=== PATIENT | male | born 1970 | race Caucasian/White ===

== ENCOUNTER 2020-07-14 19:46 | Inpatient (IN) | payer BC, OTHER ==
[2020-07-14 20:04] VITALS: BMI 27.3
[2020-07-14] MEDS ORDERED: DEXAMETHASONE SOD PHOSPHATE 4 MG/1 ML VIAL IVPUSH ONE (20:46)
[2020-07-14] MEDS ORDERED: DEXAMETHASONE SOD PHOSPHATE 10 MG/1 ML VIAL ONE (20:49)
[2020-07-14] MEDS ORDERED: ACETAMINOPHEN 1000 MG/100 ML VIAL (NON FORMULARY) IVPB ONE (20:52)
[2020-07-14 20:54] LABS: BASO % 0.1 % (0-2.0); EOS % 1.4 % (0-4.5); HEMATOCRIT 44.3 % (35.4-49); HEMOGLOBIN 14.6 GM/dL (11.7-16.9); LYMPH % 13.8 % (8-40); MCH 28.8 pg (25.7-33.7); MCHC 32.9 g/dl (32.0-35.9); MEAN CELL VOLUME 87.6 fl (80-96); MONO % 10.1 % (3.8-10.2); NEUT % 74.6 % (42.8-82.8); PLATELET COUNT 336 K/MM3 (134-434); RBC 5.06 M/mm3 (4.00-5.60); RDW 13.2 % (11.9-15.9); VENOUS BASE EXCESS 0.9 mmol/L (-2-2); VENOUS O2 SATURATION 81.4 % (70-80); VENOUS PCO2 41.2 mmHg (38-52); VENOUS PH 7.412 (7.310-7.410); WHITE BLOOD COUNT 10.6 K/mm3 (4.0-10.0)
[2020-07-14] MEDS ORDERED: ACETAMINOPHEN INJECTION 100 ML IVPB ONE (20:59)
[2020-07-14 21:02] LABS: INR 1.04 (0.83-1.09); PROTHROMBIN TIME (PATIENT) 12.8 SEC (9.7-13.0)
[2020-07-14 21:04] LABS: ACTIVATED PTT 28.3 SECONDS (25.2-36.5)
[2020-07-14 21:20] LABS: CHLORIDE 100 mmol/L (98-107); SODIUM 135 mmol/L (136-145)
[2020-07-14 21:22] LABS: ALBUMIN 2.8 g/dl (3.4-5.0); ANION GAP 7 MMOL/L (8-16); CALCIUM 8.3 mg/dL (8.5-10.1); CO2 28 mmol/L (21-32)
[2020-07-14 21:23] LABS: GLUCOSE,RANDOM 151 mg/dL (74-106)
[2020-07-14 21:25] LABS: BILIRUBIN,DIRECT 0.5 mg/dL (0.0-0.2); CREATININE 0.8 mg/dL (0.55-1.3); SGOT/AST 51 U/L (15-37); SGPT/ALT 36 U/L (13-61)
[2020-07-14 21:27] LABS: TOT PROT 7.9 g/dl (6.4-8.2)
[2020-07-14 21:28] LABS: ALK PHOS 91 U/L (45-117)
[2020-07-14 21:29] LABS: LDH 511 U/L (87-246)
[2020-07-14 21:39] LABS: EPI CELLS >36 /uL (0-25.1); HYALINE CASTS 39 /uL (0-3.1); PH,URINE 5.5 (5.0-8.0); URINE APPEARANCE CLOUDY; URINE BILIRUBIN 2+ (NEGATIVE); URINE COLOR DK YELLOW; URINE GLUCOSE (UA) TRACE (NEGATIVE); URINE KETONE TRACE (NEGATIVE); URINE LEUK ESTERASE 1+ (NEGATIVE); URINE NITRITE POSITIVE (NEGATIVE); URINE PROTEIN 3+ (NEGATIVE); URINE WBC 44 /uL (0-25.8)
[2020-07-14] MEDS ORDERED: CEFTRIAXONE 1,000 MG in DEXTROSE 5%-WATER - 50 ML IVPB ONE (22:08)
[2020-07-14] MEDS ORDERED: CEFTRIAXONE 1 GM/50 ML BAG ONE (22:12)
[2020-07-14] MEDS ORDERED: ENOXAPARIN NA (PORCINE) 40 MG/0.4 ML DISP.SYRIN SQ ONE (22:45)
[2020-07-14] MEDS ORDERED: ASCORBIC ACID 500 MG TABLET (FP) ONE (22:45)
[2020-07-14] MEDS: ASCORBIC ACID 500 MG TABLET (FP) PO SCH (22:50)
[2020-07-14] MEDS: ENOXAPARIN NA (PORCINE) 40 MG/0.4 ML DISP.SYRIN SQ SCH (22:50)
[2020-07-14 23:37] LABS: BASO % 0.9 % (0-2.0); EOS % 0.2 % (0-4.5); HEMATOCRIT 42.4 % (35.4-49); HEMOGLOBIN 13.8 GM/dL (11.7-16.9); LYMPH % 4.5 % (8-40); MCH 28.3 pg (25.7-33.7); MCHC 32.6 g/dl (32.0-35.9); MEAN PLT VOLUME 7.7 fl (7.5-11.1); MONO % 5.8 % (3.8-10.2); NEUT % 88.6 % (42.8-82.8); PLATELET COUNT 312 K/MM3 (134-434); RBC 4.88 M/mm3 (4.00-5.60); WHITE BLOOD COUNT 11.3 K/mm3 (4.0-10.0)
[2020-07-14 23:45] LABS: URINE BACTERIA 126.1 /uL (0-1359); URINE RBC 29.6 /uL (0-23.9)
[2020-07-15 06:08] LABS: ALBUMIN 2.4 g/dl (3.4-5.0); BLOOD UREA NITROGEN 17.5 mg/dL (7-18); MAGNESIUM 2.6 mg/dL (1.8-2.4)
[2020-07-15 06:09] LABS: CALCIUM 8.4 mg/dL (8.5-10.1)
[2020-07-15 06:11] LABS: CREATININE 0.6 mg/dL (0.55-1.3)
[2020-07-15 06:12] LABS: BILIRUBIN,TOTAL 0.8 mg/dL (0.2-1); TOT PROT 7.3 g/dl (6.4-8.2)
[2020-07-15] MEDS ORDERED: ZINC SULFATE 220 MG CAPSULE (FP) ONE (09:22)
[2020-07-15] MEDS ORDERED: DEXAMETHASONE SOD PHOSPHATE 4 MG/1 ML VIAL ONE (09:22)
[2020-07-15] MEDS ORDERED: ASCORBIC ACID 500 MG TABLET (FP) ONE (09:22)
[2020-07-15] MEDS ORDERED: CEFTRIAXONE 1 GM/50 ML BAG ONE (09:23)
[2020-07-15] MEDS ORDERED: ENOXAPARIN NA (PORCINE) 40 MG/0.4 ML DISP.SYRIN SQ ONE (09:23)
[2020-07-15 09:24] LABS: BASO % 0.7 % (0-2.0); HEMOGLOBIN 13.7 GM/dL (11.7-16.9); LYMPH % 6.4 % (8-40); MCH 29.2 pg (25.7-33.7); MCHC 33.4 g/dl (32.0-35.9); MEAN CELL VOLUME 87.4 fl (80-96); MEAN PLT VOLUME 8.1 fl (7.5-11.1); MONO % 3.9 % (3.8-10.2); PLATELET COUNT 330 K/MM3 (134-434); RBC 4.69 M/mm3 (4.00-5.60); RDW 13.2 % (11.9-15.9); WHITE BLOOD COUNT 6.8 K/mm3 (4.0-10.0)
[2020-07-15] MEDS: CEFTRIAXONE 1 GM in DEXTROSE 5%-WATER - 50 ML IVPB SCH (09:36)
[2020-07-15] MEDS: ASCORBIC ACID 500 MG TABLET (FP) PO SCH ×2 (09:36→22:18)
[2020-07-15] MEDS: DEXAMETHASONE SOD PHOSPHATE 10 MG/1 ML VIAL IVPUSH SCH (09:36)
[2020-07-15] MEDS: ZINC SULFATE 220 MG CAPSULE (FP) PO SCH (09:36)
[2020-07-15] MEDS: ENOXAPARIN NA (PORCINE) 40 MG/0.4 ML DISP.SYRIN SQ SCH (09:36)
[2020-07-15] MEDS ORDERED: REMDESIVIR 200 MG in SODIUM CHLORIDE 210 ML IVPB ONE (15:30)
[2020-07-16 08:08] LABS: BASO % 0.1 % (0-2.0); HEMATOCRIT 37.4 % (35.4-49); HEMOGLOBIN 12.8 GM/dL (11.7-16.9); LYMPH % 4.8 % (8-40); MCH 29.4 pg (25.7-33.7); MCHC 34.2 g/dl (32.0-35.9); MEAN CELL VOLUME 85.7 fl (80-96); MEAN PLT VOLUME 7.7 fl (7.5-11.1); MONO % 7.9 % (3.8-10.2); NEUT % 87.2 % (42.8-82.8); PLATELET COUNT 461 K/MM3 (134-434); RBC 4.36 M/mm3 (4.00-5.60); RDW 12.9 % (11.9-15.9)
[2020-07-16 08:41] LABS: ALBUMIN 2.2 g/dl (3.4-5.0); BLOOD UREA NITROGEN 15.4 mg/dL (7-18); CALCIUM 7.9 mg/dL (8.5-10.1)
[2020-07-16 08:42] LABS: CREATININE 0.5 mg/dL (0.55-1.3); MAGNESIUM 2.6 mg/dL (1.8-2.4)
[2020-07-16 08:44] LABS: BILIRUBIN,TOTAL 0.5 mg/dL (0.2-1); TOT PROT 6.5 g/dl (6.4-8.2)
[2020-07-16] MEDS ORDERED: cefTRIAXone SODIUM 1 GM VIAL ONE (09:39)
[2020-07-16] MEDS ORDERED: DEXTROSE 5%-WATER - 50 ML IVPB ONE (09:39)
[2020-07-16] MEDS: DEXAMETHASONE SOD PHOSPHATE 10 MG/1 ML VIAL IVPUSH SCH (11:16)
[2020-07-16] MEDS: ASCORBIC ACID 500 MG TABLET (FP) PO SCH ×2 (11:16→22:00)
[2020-07-16] MEDS: ZINC SULFATE 220 MG CAPSULE (FP) PO SCH (11:16)
[2020-07-16] MEDS: ENOXAPARIN NA (PORCINE) 40 MG/0.4 ML DISP.SYRIN SQ SCH (11:16)
[2020-07-16] MEDS: CEFTRIAXONE 1 GM in DEXTROSE 5%-WATER - 50 ML IVPB SCH (11:17)
[2020-07-16] MEDS: REMDESIVIR 100 MG in SODIUM CHLORIDE 230 ML IVPB SCH (15:33)
[2020-07-17] MEDS ORDERED: DEXTROSE 5%-WATER - 50 ML IVPB ONE (08:59)
[2020-07-17] MEDS ORDERED: cefTRIAXone SODIUM 1 GM VIAL ONE (08:59)
[2020-07-17 09:08] LABS: BASO % 0.3 % (0-2.0); HEMATOCRIT 38.6 % (35.4-49); MCH 29.2 pg (25.7-33.7); MCHC 33.8 g/dl (32.0-35.9); MEAN CELL VOLUME 86.4 fl (80-96); MEAN PLT VOLUME 7.8 fl (7.5-11.1); MONO % 8.2 % (3.8-10.2); NEUT % 85.5 % (42.8-82.8); PLATELET COUNT 501 K/MM3 (134-434); RBC 4.46 M/mm3 (4.00-5.60); RDW 13.2 % (11.9-15.9); WHITE BLOOD COUNT 17.7 K/mm3 (4.0-10.0)
[2020-07-17 09:41] LABS: CREATININE 0.6 mg/dL (0.55-1.3)
[2020-07-17 09:46] LABS: ALBUMIN 2.2 g/dl (3.4-5.0); CALCIUM 7.8 mg/dL (8.5-10.1)
[2020-07-17 09:47] LABS: MAGNESIUM 2.4 mg/dL (1.8-2.4)
[2020-07-17 09:50] LABS: BILIRUBIN,TOTAL 0.5 mg/dL (0.2-1)
[2020-07-17 09:51] LABS: TOT PROT 6.3 g/dl (6.4-8.2)
[2020-07-17] MEDS: ENOXAPARIN NA (PORCINE) 40 MG/0.4 ML DISP.SYRIN SQ SCH (10:09)
[2020-07-17] MEDS: ZINC SULFATE 220 MG CAPSULE (FP) PO SCH (10:09)
[2020-07-17] MEDS: DEXAMETHASONE SOD PHOSPHATE 10 MG/1 ML VIAL IVPUSH SCH (10:09)
[2020-07-17] MEDS: CEFTRIAXONE 1 GM in DEXTROSE 5%-WATER - 50 ML IVPB SCH (10:09)
[2020-07-17] MEDS: ASCORBIC ACID 500 MG TABLET (FP) PO SCH ×2 (10:10→21:32)
[2020-07-17] MEDS: REMDESIVIR 100 MG in SODIUM CHLORIDE 230 ML IVPB SCH (15:49)
[2020-07-18 08:48] LABS: BASO % 0.1 % (0-2.0); EOS % 0.6 % (0-4.5); HEMATOCRIT 39.4 % (35.4-49); HEMOGLOBIN 13.3 GM/dL (11.7-16.9); MCH 29.3 pg (25.7-33.7); MCHC 33.7 g/dl (32.0-35.9); MEAN CELL VOLUME 86.9 fl (80-96); MEAN PLT VOLUME 7.6 fl (7.5-11.1); MONO % 9.7 % (3.8-10.2); NEUT % 78.6 % (42.8-82.8); PLATELET COUNT 526 K/MM3 (134-434); RBC 4.54 M/mm3 (4.00-5.60); RDW 12.9 % (11.9-15.9)
[2020-07-18 09:11] LABS: ALBUMIN 2.2 g/dl (3.4-5.0); BLOOD UREA NITROGEN 12.2 mg/dL (7-18); CALCIUM 7.9 mg/dL (8.5-10.1); MAGNESIUM 2.5 mg/dL (1.8-2.4)
[2020-07-18 09:14] LABS: CREATININE 0.5 mg/dL (0.55-1.3)
[2020-07-18 09:15] LABS: BILIRUBIN,TOTAL 0.6 mg/dL (0.2-1); TOT PROT 6.5 g/dl (6.4-8.2)
[2020-07-18] MEDS ORDERED: DEXTROSE 5%-WATER - 50 ML IVPB ONE (09:44)
[2020-07-18] MEDS ORDERED: cefTRIAXone SODIUM 1 GM VIAL ONE (09:44)
[2020-07-18] MEDS: DEXAMETHASONE SOD PHOSPHATE 10 MG/1 ML VIAL IVPUSH SCH (10:02)
[2020-07-18] MEDS: ENOXAPARIN NA (PORCINE) 40 MG/0.4 ML DISP.SYRIN SQ SCH (10:02)
[2020-07-18] MEDS: ZINC SULFATE 220 MG CAPSULE (FP) PO SCH (10:06)
[2020-07-18] MEDS: ASCORBIC ACID 500 MG TABLET (FP) PO SCH ×2 (10:06→22:01)
[2020-07-18] MEDS: CEFTRIAXONE 1 GM in DEXTROSE 5%-WATER - 50 ML IVPB SCH (10:06)
[2020-07-18] MEDS: REMDESIVIR 100 MG in SODIUM CHLORIDE 230 ML IVPB SCH (15:31)
[2020-07-19 07:22] LABS: BASO % 0.1 % (0-2.0); EOS % 0.9 % (0-4.5); HEMATOCRIT 40.7 % (35.4-49); LYMPH % 13.8 % (8-40); MCH 29.7 pg (25.7-33.7); MCHC 34.2 g/dl (32.0-35.9); MEAN CELL VOLUME 86.7 fl (80-96); MEAN PLT VOLUME 7.3 fl (7.5-11.1); MONO % 9.6 % (3.8-10.2); NEUT % 75.6 % (42.8-82.8); PLATELET COUNT 598 K/MM3 (134-434); WHITE BLOOD COUNT 13.4 K/mm3 (4.0-10.0)
[2020-07-19 07:36] LABS: CALCIUM 7.8 mg/dL (8.5-10.1)
[2020-07-19 07:37] LABS: ALBUMIN 2.3 g/dl (3.4-5.0); BLOOD UREA NITROGEN 12.8 mg/dL (7-18); MAGNESIUM 2.3 mg/dL (1.8-2.4)
[2020-07-19 07:40] LABS: CREATININE 0.5 mg/dL (0.55-1.3)
[2020-07-19 07:41] LABS: BILIRUBIN,TOTAL 0.5 mg/dL (0.2-1)
[2020-07-19 07:42] LABS: TOT PROT 6.4 g/dl (6.4-8.2)
[2020-07-19] MEDS ORDERED: cefTRIAXone SODIUM 1 GM VIAL ONE (08:37)
[2020-07-19] MEDS ORDERED: DEXTROSE 5%-WATER - 50 ML IVPB ONE (08:38)
[2020-07-19] MEDS: CEFTRIAXONE 1 GM in DEXTROSE 5%-WATER - 50 ML IVPB SCH (09:23)
[2020-07-19] MEDS: ZINC SULFATE 220 MG CAPSULE (FP) PO SCH (09:23)
[2020-07-19] MEDS: DEXAMETHASONE SOD PHOSPHATE 10 MG/1 ML VIAL IVPUSH SCH (09:23)
[2020-07-19] MEDS: ASCORBIC ACID 500 MG TABLET (FP) PO SCH ×2 (09:23→21:22)
[2020-07-19] MEDS: ENOXAPARIN NA (PORCINE) 40 MG/0.4 ML DISP.SYRIN SQ SCH (09:24)
[2020-07-19] MEDS: REMDESIVIR 100 MG in SODIUM CHLORIDE 230 ML IVPB SCH (15:12)
[2020-07-20 07:25] LABS: BASO % 0.2 % (0-2.0); EOS % 1.4 % (0-4.5); HEMATOCRIT 42.9 % (35.4-49); HEMOGLOBIN 14.2 GM/dL (11.7-16.9); LYMPH % 14.1 % (8-40); MCH 28.9 pg (25.7-33.7); MEAN CELL VOLUME 87.6 fl (80-96); MEAN PLT VOLUME 7.5 fl (7.5-11.1); MONO % 11.2 % (3.8-10.2); NEUT % 73.1 % (42.8-82.8); PLATELET COUNT 684 K/MM3 (134-434); RDW 13.4 % (11.9-15.9); WHITE BLOOD COUNT 16.8 K/mm3 (4.0-10.0)
[2020-07-20 08:32] LABS: ALBUMIN 2.4 g/dl (3.4-5.0)
[2020-07-20 08:34] LABS: BILIRUBIN,TOTAL 0.6 mg/dL (0.2-1); MAGNESIUM 2.6 mg/dL (1.8-2.4); TOT PROT 6.6 g/dl (6.4-8.2)
[2020-07-20 08:36] LABS: CREATININE 0.5 mg/dL (0.55-1.3)
[2020-07-20] MEDS: CEFTRIAXONE 1 GM in DEXTROSE 5%-WATER - 50 ML IVPB SCH (09:13)
[2020-07-20] MEDS: DEXAMETHASONE SOD PHOSPHATE 10 MG/1 ML VIAL IVPUSH SCH (09:29)
[2020-07-20] MEDS: ENOXAPARIN NA (PORCINE) 40 MG/0.4 ML DISP.SYRIN SQ SCH (09:29)
[2020-07-20] MEDS: ZINC SULFATE 220 MG CAPSULE (FP) PO SCH (09:29)
[2020-07-20] MEDS: ASCORBIC ACID 500 MG TABLET (FP) PO SCH ×2 (09:29→22:07)
[2020-07-20] MEDS ORDERED: DEXTROSE 5%-WATER - 50 ML IVPB ONE (09:33)
[2020-07-20] MEDS ORDERED: cefTRIAXone SODIUM 1 GM VIAL ONE (09:33)
[2020-07-21 07:49] LABS: BASO % 0.4 % (0-2.0); EOS % 1.6 % (0-4.5); HEMOGLOBIN 14.7 GM/dL (11.7-16.9); LYMPH % 14.8 % (8-40); MCH 29.1 pg (25.7-33.7); MCHC 33.4 g/dl (32.0-35.9); MEAN CELL VOLUME 87.2 fl (80-96); MONO % 10.9 % (3.8-10.2); NEUT % 72.3 % (42.8-82.8); PLATELET COUNT 705 K/MM3 (134-434); RBC 5.04 M/mm3 (4.00-5.60); RDW 12.9 % (11.9-15.9); WHITE BLOOD COUNT 18.4 K/mm3 (4.0-10.0)
[2020-07-21 08:24] LABS: ALBUMIN 2.5 g/dl (3.4-5.0); BLOOD UREA NITROGEN 14.3 mg/dL (7-18)
[2020-07-21 08:26] LABS: BILIRUBIN,TOTAL 0.8 mg/dL (0.2-1); TOT PROT 6.5 g/dl (6.4-8.2)
[2020-07-21 08:27] LABS: CREATININE 0.5 mg/dL (0.55-1.3)
[2020-07-21 08:29] LABS: CALCIUM 7.7 mg/dL (8.5-10.1)
[2020-07-21 08:30] LABS: MAGNESIUM 2.3 mg/dL (1.8-2.4)
[2020-07-21] MEDS ORDERED: DEXTROSE 5%-WATER - 50 ML IVPB ONE (08:54)
[2020-07-21] MEDS ORDERED: cefTRIAXone SODIUM 1 GM VIAL ONE (08:54)
[2020-07-21] MEDS: DEXAMETHASONE SOD PHOSPHATE 10 MG/1 ML VIAL IVPUSH SCH (09:18)
[2020-07-21] MEDS: CEFTRIAXONE 1 GM in DEXTROSE 5%-WATER - 50 ML IVPB SCH (09:21)
[2020-07-21] MEDS: ASCORBIC ACID 500 MG TABLET (FP) PO SCH ×2 (09:21→22:17)
[2020-07-21] MEDS: ZINC SULFATE 220 MG CAPSULE (FP) PO SCH (09:21)
[2020-07-21] MEDS: ENOXAPARIN NA (PORCINE) 40 MG/0.4 ML DISP.SYRIN SQ SCH (09:24)
[2020-07-21] MEDS: DOCUSATE SODIUM 100 MG CAPSULE (FP) PO SCH ×2 (18:42→22:16)
[2020-07-21] MEDS: PANTOPRAZOLE 40 MG TABLET PO SCH (18:42)
[2020-07-21] MEDS: MELATONIN 1 MG TABLET PO SCH (22:17)
[2020-07-22 08:03] LABS: BASO % 0.4 % (0-2.0); HEMATOCRIT 41.7 % (35.4-49); HEMOGLOBIN 14.1 GM/dL (11.7-16.9); LYMPH % 9.1 % (8-40); MCH 29.4 pg (25.7-33.7); MCHC 33.9 g/dl (32.0-35.9); MEAN CELL VOLUME 86.8 fl (80-96); MEAN PLT VOLUME 7.1 fl (7.5-11.1); MONO % 10.1 % (3.8-10.2); NEUT % 79.4 % (42.8-82.8); PLATELET COUNT 695 K/MM3 (134-434); RDW 12.9 % (11.9-15.9); WHITE BLOOD COUNT 21.9 K/mm3 (4.0-10.0)
[2020-07-22 08:28] LABS: CALCIUM 8.1 mg/dL (8.5-10.1)
[2020-07-22 08:29] LABS: ALBUMIN 2.4 g/dl (3.4-5.0); MAGNESIUM 2.6 mg/dL (1.8-2.4)
[2020-07-22 08:32] LABS: CREATININE 0.4 mg/dL (0.55-1.3)
[2020-07-22 08:34] LABS: BILIRUBIN,TOTAL 0.7 mg/dL (0.2-1); TOT PROT 6.4 g/dl (6.4-8.2)
[2020-07-22] MEDS ORDERED: cefTRIAXone SODIUM 1 GM VIAL ONE (08:46)
[2020-07-22] MEDS ORDERED: DEXTROSE 5%-WATER - 50 ML IVPB ONE (08:47)
[2020-07-22] MEDS: CEFTRIAXONE 1 GM in DEXTROSE 5%-WATER - 50 ML IVPB SCH (09:37)
[2020-07-22] MEDS: DEXAMETHASONE SOD PHOSPHATE 10 MG/1 ML VIAL IVPUSH SCH (09:38)
[2020-07-22] MEDS: ENOXAPARIN NA (PORCINE) 40 MG/0.4 ML DISP.SYRIN SQ SCH (09:39)
[2020-07-22] MEDS: ASCORBIC ACID 500 MG TABLET (FP) PO SCH ×2 (09:40→21:48)
[2020-07-22] MEDS: ZINC SULFATE 220 MG CAPSULE (FP) PO SCH (09:40)
[2020-07-22] MEDS: DOCUSATE SODIUM 100 MG CAPSULE (FP) PO SCH ×2 (09:40→21:47)
[2020-07-22] MEDS: PANTOPRAZOLE 40 MG TABLET PO SCH (09:40)
[2020-07-22 11:47] LABS: ANISOCYTOSIS 1+; MACROCYTOSIS 0; PLATELET ESTIMATE INCREASED
[2020-07-22] MEDS: MELATONIN 1 MG TABLET PO SCH (21:48)
[2020-07-23 07:21] LABS: BASO % 0.3 % (0-2.0); EOS % 0.9 % (0-4.5); HEMATOCRIT 41.6 % (35.4-49); HEMOGLOBIN 14.1 GM/dL (11.7-16.9); MCH 29.4 pg (25.7-33.7); MCHC 33.9 g/dl (32.0-35.9); MEAN CELL VOLUME 86.7 fl (80-96); MEAN PLT VOLUME 7.2 fl (7.5-11.1); MONO % 10.5 % (3.8-10.2); NEUT % 78.3 % (42.8-82.8); PLATELET COUNT 627 K/MM3 (134-434); RDW 13.1 % (11.9-15.9); WHITE BLOOD COUNT 20.6 K/mm3 (4.0-10.0)
[2020-07-23 07:41] LABS: CALCIUM 8.2 mg/dL (8.5-10.1)
[2020-07-23 07:42] LABS: ALBUMIN 2.4 g/dl (3.4-5.0); BLOOD UREA NITROGEN 12.7 mg/dL (7-18); MAGNESIUM 2.4 mg/dL (1.8-2.4)
[2020-07-23 07:46] LABS: BILIRUBIN,TOTAL 0.7 mg/dL (0.2-1); CREATININE 0.4 mg/dL (0.55-1.3)
[2020-07-23 07:47] LABS: TOT PROT 6.3 g/dl (6.4-8.2)
[2020-07-23] MEDS ORDERED: DEXTROSE 5%-WATER - 50 ML IVPB ONE (09:37)
[2020-07-23] MEDS ORDERED: cefTRIAXone SODIUM 1 GM VIAL ONE (09:37)
[2020-07-23 09:53] LABS: ANISOCYTOSIS 0; MACROCYTOSIS 0; PLATELET ESTIMATE INCREASED
[2020-07-23] MEDS: ASCORBIC ACID 500 MG TABLET (FP) PO SCH ×2 (10:03→23:06)
[2020-07-23] MEDS: PANTOPRAZOLE 40 MG TABLET PO SCH (10:03)
[2020-07-23] MEDS: DOCUSATE SODIUM 100 MG CAPSULE (FP) PO SCH ×2 (10:03→23:07)
[2020-07-23] MEDS: ZINC SULFATE 220 MG CAPSULE (FP) PO SCH (10:03)
[2020-07-23] MEDS: DEXAMETHASONE SOD PHOSPHATE 10 MG/1 ML VIAL IVPUSH SCH (10:03)
[2020-07-23] MEDS: ENOXAPARIN NA (PORCINE) 40 MG/0.4 ML DISP.SYRIN SQ SCH (10:03)
[2020-07-23] MEDS: CEFTRIAXONE 1 GM in DEXTROSE 5%-WATER - 50 ML IVPB SCH (10:04)
[2020-07-23] MEDS: MELATONIN 1 MG TABLET PO SCH (23:06)
[2020-07-24 06:36] LABS: BASO % 0.7 % (0-2.0); EOS % 1.1 % (0-4.5); HEMOGLOBIN 13.8 GM/dL (11.7-16.9); LYMPH % 11.3 % (8-40); MCH 28.8 pg (25.7-33.7); MCHC 32.9 g/dl (32.0-35.9); MEAN CELL VOLUME 87.7 fl (80-96); MONO % 10.9 % (3.8-10.2); PLATELET COUNT 553 K/MM3 (134-434); RBC 4.79 M/mm3 (4.00-5.60); RDW 13.4 % (11.9-15.9); WHITE BLOOD COUNT 19.3 K/mm3 (4.0-10.0)
[2020-07-24 06:57] LABS: ALBUMIN 2.5 g/dl (3.4-5.0); BLOOD UREA NITROGEN 12.7 mg/dL (7-18); CALCIUM 8.2 mg/dL (8.5-10.1); MAGNESIUM 2.4 mg/dL (1.8-2.4)
[2020-07-24 07:01] LABS: CREATININE 0.4 mg/dL (0.55-1.3)
[2020-07-24 07:02] LABS: BILIRUBIN,TOTAL 0.8 mg/dL (0.2-1); TOT PROT 6.3 g/dl (6.4-8.2)
[2020-07-24] MEDS: DOCUSATE SODIUM 100 MG CAPSULE (FP) PO SCH ×2 (10:20→22:26)
[2020-07-24] MEDS: ENOXAPARIN NA (PORCINE) 40 MG/0.4 ML DISP.SYRIN SQ SCH (10:20)
[2020-07-24] MEDS: ASCORBIC ACID 500 MG TABLET (FP) PO SCH ×2 (10:20→22:26)
[2020-07-24] MEDS: ZINC SULFATE 220 MG CAPSULE (FP) PO SCH (10:20)
[2020-07-24] MEDS: PANTOPRAZOLE 40 MG TABLET PO SCH (10:20)
[2020-07-24] MEDS: DEXAMETHASONE SOD PHOSPHATE 10 MG/1 ML VIAL IVPUSH SCH (10:20)
[2020-07-24] MEDS: MELATONIN 1 MG TABLET PO SCH (22:26)
[2020-07-25 08:20] LABS: BASO % 0.6 % (0-2.0); CALCIUM 8.2 mg/dL (8.5-10.1); EOS % 1.1 % (0-4.5); HEMATOCRIT 40.4 % (35.4-49); HEMOGLOBIN 13.5 GM/dL (11.7-16.9); LYMPH % 9.9 % (8-40); MCH 29.3 pg (25.7-33.7); MCHC 33.3 g/dl (32.0-35.9); MEAN CELL VOLUME 87.8 fl (80-96); MEAN PLT VOLUME 7.4 fl (7.5-11.1); MONO % 10.4 % (3.8-10.2); PLATELET COUNT 459 K/MM3 (134-434); RDW 13.3 % (11.9-15.9); WHITE BLOOD COUNT 20.9 K/mm3 (4.0-10.0)
[2020-07-25 08:21] LABS: ALBUMIN 2.4 g/dl (3.4-5.0); BLOOD UREA NITROGEN 12.3 mg/dL (7-18); MAGNESIUM 2.5 mg/dL (1.8-2.4)
[2020-07-25 08:24] LABS: CREATININE 0.4 mg/dL (0.55-1.3)
[2020-07-25 08:25] LABS: BILIRUBIN,TOTAL 0.8 mg/dL (0.2-1); TOT PROT 6.3 g/dl (6.4-8.2)
[2020-07-25] MEDS: DEXAMETHASONE SOD PHOSPHATE 10 MG/1 ML VIAL IVPUSH SCH (09:00)
[2020-07-25] MEDS: ZINC SULFATE 220 MG CAPSULE (FP) PO SCH (09:00)
[2020-07-25] MEDS: ENOXAPARIN NA (PORCINE) 40 MG/0.4 ML DISP.SYRIN SQ SCH (09:00)
[2020-07-25] MEDS: DOCUSATE SODIUM 100 MG CAPSULE (FP) PO SCH ×2 (09:00→21:45)
[2020-07-25] MEDS: PANTOPRAZOLE 40 MG TABLET PO SCH (09:00)
[2020-07-25] MEDS: ASCORBIC ACID 500 MG TABLET (FP) PO SCH ×2 (09:00→21:45)
[2020-07-25 09:40] LABS: ANISOCYTOSIS 1+; PLATELET ESTIMATE NORMAL
[2020-07-25] MEDS: MELATONIN 1 MG TABLET PO SCH (21:45)
[2020-07-26 07:40] LABS: BASO % 0.6 % (0-2.0); EOS % 1.7 % (0-4.5); HEMATOCRIT 42.3 % (35.4-49); HEMOGLOBIN 14.1 GM/dL (11.7-16.9); LYMPH % 6.5 % (8-40); MCH 29.5 pg (25.7-33.7); MCHC 33.5 g/dl (32.0-35.9); MEAN CELL VOLUME 88.2 fl (80-96); MEAN PLT VOLUME 7.2 fl (7.5-11.1); MONO % 8.4 % (3.8-10.2); NEUT % 82.8 % (42.8-82.8); PLATELET COUNT 392 K/MM3 (134-434); RBC 4.79 M/mm3 (4.00-5.60); RDW 13.6 % (11.9-15.9); WHITE BLOOD COUNT 22.9 K/mm3 (4.0-10.0)
[2020-07-26 07:52] LABS: ALBUMIN 2.3 g/dl (3.4-5.0)
[2020-07-26 07:53] LABS: BILIRUBIN,TOTAL 1.1 mg/dL (0.2-1); TOT PROT 6.1 g/dl (6.4-8.2)
[2020-07-26 07:55] LABS: CALCIUM 7.7 mg/dL (8.5-10.1); CREATININE 0.4 mg/dL (0.55-1.3); MAGNESIUM 2.1 mg/dL (1.8-2.4)
[2020-07-26 09:29] LABS: ANISOCYTOSIS 0; MACROCYTOSIS 0; PLATELET ESTIMATE NORMAL
[2020-07-26] MEDS: DEXAMETHASONE SOD PHOSPHATE 10 MG/1 ML VIAL IVPUSH SCH (10:28)
[2020-07-26] MEDS: ENOXAPARIN NA (PORCINE) 40 MG/0.4 ML DISP.SYRIN SQ SCH (10:28)
[2020-07-26] MEDS: ASCORBIC ACID 500 MG TABLET (FP) PO SCH ×2 (10:29→21:52)
[2020-07-26] MEDS: DOCUSATE SODIUM 100 MG CAPSULE (FP) PO SCH ×2 (10:29→21:51)
[2020-07-26] MEDS: ZINC SULFATE 220 MG CAPSULE (FP) PO SCH (10:29)
[2020-07-26] MEDS: PANTOPRAZOLE 40 MG TABLET PO SCH (10:29)
[2020-07-26] MEDS ORDERED: cefTRIAXone SODIUM 1 GM VIAL ONE (12:28)
[2020-07-26] MEDS ORDERED: DEXTROSE 5%-WATER - 50 ML IVPB ONE (12:28)
[2020-07-26] MEDS ORDERED: CEFTRIAXONE 1 GM in DEXTROSE 5%-WATER - 50 ML IVPB ONE (12:30)
[2020-07-26] MEDS ORDERED: TOCILIZUMAB (ACTEMRA) 200 MG/10 ML VIAL IVPB ONE (13:00)
[2020-07-26 13:30] LABS: PH,URINE 6.5 (5.0-8.0); URINE APPEARANCE CLEAR; URINE BILIRUBIN NEGATIVE (NEGATIVE); URINE COLOR DK YELLOW; URINE GLUCOSE (UA) NEGATIVE (NEGATIVE); URINE KETONE NEGATIVE (NEGATIVE); URINE LEUK ESTERASE NEGATIVE (NEGATIVE); URINE NITRITE NEGATIVE (NEGATIVE); URINE PROTEIN TRACE (NEGATIVE); URINE UROBILINOGEN >=8.0 E.U./dl mg/dL (0.2-1.0)
[2020-07-26] MEDS ORDERED: TOCILIZUMAB IVPB ONE (13:30)
[2020-07-26] MEDS ORDERED: SODIUM CHLORIDE IVPB ONE (13:30)
[2020-07-26] MEDS ORDERED: PT OWN MED DRAWER 7, Y5N ONE ×2 (14:34→23:47)
[2020-07-26] MEDS: ENOXAPARIN NA (PORCINE) 100 MG/1 ML DISP.SYRIN SQ SCH (21:51)
[2020-07-26] MEDS: MELATONIN 1 MG TABLET PO SCH (21:52)
[2020-07-26] MEDS ORDERED: ENOXAPARIN NA (PORCINE) 80 MG/0.8 ML DISP.SYRIN SQ SCH (22:00)
[2020-07-27 07:43] LABS: BASO % 1.1 % (0-2.0); EOS % 0.2 % (0-4.5); HEMATOCRIT 40.3 % (35.4-49); HEMOGLOBIN 13.4 GM/dL (11.7-16.9); LYMPH % 5.4 % (8-40); MCH 29.5 pg (25.7-33.7); MCHC 33.4 g/dl (32.0-35.9); MEAN CELL VOLUME 88.6 fl (80-96); MEAN PLT VOLUME 7.7 fl (7.5-11.1); MONO % 6.3 % (3.8-10.2); PLATELET COUNT 344 K/MM3 (134-434); RBC 4.55 M/mm3 (4.00-5.60); RDW 13.5 % (11.9-15.9); WHITE BLOOD COUNT 22.5 K/mm3 (4.0-10.0)
[2020-07-27 08:06] LABS: CALCIUM 8.3 mg/dL (8.5-10.1)
[2020-07-27 08:07] LABS: ALBUMIN 2.2 g/dl (3.4-5.0); BLOOD UREA NITROGEN 13.5 mg/dL (7-18); MAGNESIUM 2.7 mg/dL (1.8-2.4)
[2020-07-27 08:09] LABS: CREATININE 0.4 mg/dL (0.55-1.3)
[2020-07-27 08:11] LABS: BILIRUBIN,TOTAL 0.4 mg/dL (0.2-1); TOT PROT 6.2 g/dl (6.4-8.2)
[2020-07-27] MEDS ORDERED: cefTRIAXone SODIUM 1 GM VIAL ONE (09:29)
[2020-07-27] MEDS ORDERED: DEXTROSE 5%-WATER - 50 ML IVPB ONE (09:29)
[2020-07-27] MEDS: CEFTRIAXONE 1 GM in DEXTROSE 5%-WATER - 50 ML IVPB SCH (09:40)
[2020-07-27] MEDS: PANTOPRAZOLE 40 MG TABLET PO SCH (09:41)
[2020-07-27] MEDS: ZINC SULFATE 220 MG CAPSULE (FP) PO SCH (09:41)
[2020-07-27] MEDS: ASCORBIC ACID 500 MG TABLET (FP) PO SCH ×2 (09:41→21:44)
[2020-07-27] MEDS: DOCUSATE SODIUM 100 MG CAPSULE (FP) PO SCH ×2 (09:41→21:44)
[2020-07-27] MEDS: ENOXAPARIN NA (PORCINE) 100 MG/1 ML DISP.SYRIN SQ SCH ×2 (09:41→21:45)
[2020-07-27] MEDS: DEXAMETHASONE SOD PHOSPHATE 10 MG/1 ML VIAL IVPUSH SCH (09:41)
[2020-07-27 11:27] LABS: ANISOCYTOSIS 0; MACROCYTOSIS 0; PLATELET ESTIMATE NORMAL
[2020-07-27] MEDS: guaiFENesin/CODEINE 10 ML UNIT-DOSE CUPS PO PRN ×2 (13:42→21:45)
[2020-07-27] MEDS: MELATONIN 1 MG TABLET PO SCH (21:44)
[2020-07-28] MEDS: guaiFENesin/CODEINE 10 ML UNIT-DOSE CUPS PO PRN ×2 (06:37→14:42)
[2020-07-28 08:04] LABS: BASO % 0.6 % (0-2.0); EOS % 2.4 % (0-4.5); HEMOGLOBIN 13.4 GM/dL (11.7-16.9); LYMPH % 10.9 % (8-40); MCH 29.4 pg (25.7-33.7); MCHC 33.3 g/dl (32.0-35.9); MEAN CELL VOLUME 88.2 fl (80-96); MEAN PLT VOLUME 8.2 fl (7.5-11.1); MONO % 5.8 % (3.8-10.2); NEUT % 80.3 % (42.8-82.8); PLATELET COUNT 347 K/MM3 (134-434); RBC 4.54 M/mm3 (4.00-5.60); RDW 13.5 % (11.9-15.9)
[2020-07-28] MEDS ORDERED: cefTRIAXone SODIUM 1 GM VIAL ONE (08:08)
[2020-07-28] MEDS ORDERED: DEXTROSE 5%-WATER - 50 ML IVPB ONE (08:09)
[2020-07-28 08:23] LABS: ALBUMIN 2.4 g/dl (3.4-5.0); BLOOD UREA NITROGEN 13.3 mg/dL (7-18); CALCIUM 8.4 mg/dL (8.5-10.1)
[2020-07-28 08:24] LABS: MAGNESIUM 2.4 mg/dL (1.8-2.4)
[2020-07-28 08:27] LABS: CREATININE 0.5 mg/dL (0.55-1.3)
[2020-07-28 08:28] LABS: BILIRUBIN,TOTAL 0.4 mg/dL (0.2-1); TOT PROT 6.2 g/dl (6.4-8.2)
[2020-07-28] MEDS: ENOXAPARIN NA (PORCINE) 100 MG/1 ML DISP.SYRIN SQ SCH (09:06)
[2020-07-28] MEDS: CEFTRIAXONE 1 GM in DEXTROSE 5%-WATER - 50 ML IVPB SCH (09:06)
[2020-07-28] MEDS: ASCORBIC ACID 500 MG TABLET (FP) PO SCH (09:10)
[2020-07-28] MEDS: DEXAMETHASONE SOD PHOSPHATE 10 MG/1 ML VIAL IVPUSH SCH (09:10)
[2020-07-28] MEDS: ZINC SULFATE 220 MG CAPSULE (FP) PO SCH (09:11)
[2020-07-28] MEDS: DOCUSATE SODIUM 100 MG CAPSULE (FP) PO SCH (09:11)
[2020-07-28] MEDS: PANTOPRAZOLE 40 MG TABLET PO SCH (09:11)
[2020-07-28 10:14] LABS: ANISOCYTOSIS 1+; MACROCYTOSIS 1+; PLATELET ESTIMATE NORMAL
[2020-07-28] MEDS: BUDESONIDE/FORMETEROL FUMARATE 160/4.5 mcg INHALER IH SCH (12:25)
[2020-07-29] MEDS: ENOXAPARIN NA (PORCINE) 100 MG/1 ML DISP.SYRIN SQ SCH ×3 (00:09→22:28)
[2020-07-29] MEDS: MELATONIN 1 MG TABLET PO SCH ×2 (00:09→22:28)
[2020-07-29] MEDS: DOCUSATE SODIUM 100 MG CAPSULE (FP) PO SCH ×3 (00:10→22:28)
[2020-07-29] MEDS: ASCORBIC ACID 500 MG TABLET (FP) PO SCH ×3 (00:10→22:28)
[2020-07-29] MEDS: BUDESONIDE/FORMETEROL FUMARATE 160/4.5 mcg INHALER IH SCH ×3 (00:10→22:28)
[2020-07-29] MEDS: guaiFENesin/CODEINE 10 ML UNIT-DOSE CUPS PO PRN (06:10)
[2020-07-29 07:18] LABS: BASO % 0.8 % (0-2.0); EOS % 3.9 % (0-4.5); HEMATOCRIT 39.8 % (35.4-49); HEMOGLOBIN 13.2 GM/dL (11.7-16.9); LYMPH % 15.2 % (8-40); MCH 29.4 pg (25.7-33.7); MCHC 33.2 g/dl (32.0-35.9); MEAN CELL VOLUME 88.7 fl (80-96); MEAN PLT VOLUME 7.7 fl (7.5-11.1); MONO % 6.9 % (3.8-10.2); NEUT % 73.2 % (42.8-82.8); PLATELET COUNT 290 K/MM3 (134-434); RBC 4.49 M/mm3 (4.00-5.60); RDW 13.6 % (11.9-15.9); WHITE BLOOD COUNT 17.1 K/mm3 (4.0-10.0)
[2020-07-29 07:40] LABS: ALBUMIN 2.5 g/dl (3.4-5.0); CALCIUM 7.7 mg/dL (8.5-10.1)
[2020-07-29 07:42] LABS: BLOOD UREA NITROGEN 12.4 mg/dL (7-18); MAGNESIUM 2.3 mg/dL (1.8-2.4)
[2020-07-29 07:43] LABS: BILIRUBIN,TOTAL 0.5 mg/dL (0.2-1); TOT PROT 5.9 g/dl (6.4-8.2)
[2020-07-29 07:45] LABS: CREATININE 0.5 mg/dL (0.55-1.3)
[2020-07-29] MEDS ORDERED: cefTRIAXone SODIUM 1 GM VIAL ONE (08:59)
[2020-07-29] MEDS ORDERED: DEXTROSE 5%-WATER - 50 ML IVPB ONE (08:59)
[2020-07-29 09:41] LABS: ANISOCYTOSIS 0; MACROCYTOSIS 0; PLATELET ESTIMATE NORMAL
[2020-07-29] MEDS: DEXAMETHASONE SOD PHOSPHATE 10 MG/1 ML VIAL IVPUSH SCH (09:42)
[2020-07-29] MEDS: PANTOPRAZOLE 40 MG TABLET PO SCH (09:44)
[2020-07-29] MEDS: ZINC SULFATE 220 MG CAPSULE (FP) PO SCH (09:44)
[2020-07-29] MEDS: CEFTRIAXONE 1 GM in DEXTROSE 5%-WATER - 50 ML IVPB SCH (09:44)
[2020-07-29] MEDS: guaiFENesin/CODEINE 10 ML UNIT-DOSE CUPS PO SCH ×2 (12:06→17:29)
[2020-07-30] MEDS: guaiFENesin/CODEINE 10 ML UNIT-DOSE CUPS PO SCH ×5 (00:45→23:49)
[2020-07-30 07:51] LABS: EOS % 5.8 % (0-4.5); HEMATOCRIT 41.4 % (35.4-49); LYMPH % 19.2 % (8-40); MCH 29.6 pg (25.7-33.7); MCHC 33.8 g/dl (32.0-35.9); MEAN CELL VOLUME 87.6 fl (80-96); MEAN PLT VOLUME 7.9 fl (7.5-11.1); PLATELET COUNT 265 K/MM3 (134-434); RBC 4.72 M/mm3 (4.00-5.60); RDW 13.5 % (11.9-15.9); WHITE BLOOD COUNT 16.1 K/mm3 (4.0-10.0)
[2020-07-30 08:28] LABS: ALBUMIN 2.7 g/dl (3.4-5.0); MAGNESIUM 2.4 mg/dL (1.8-2.4)
[2020-07-30 08:32] LABS: CREATININE 0.5 mg/dL (0.55-1.3)
[2020-07-30 08:33] LABS: BILIRUBIN,TOTAL 0.5 mg/dL (0.2-1); TOT PROT 6.1 g/dl (6.4-8.2)
[2020-07-30] MEDS: DOCUSATE SODIUM 100 MG CAPSULE (FP) PO SCH ×2 (10:36→22:04)
[2020-07-30] MEDS: ENOXAPARIN NA (PORCINE) 100 MG/1 ML DISP.SYRIN SQ SCH ×2 (10:36→22:04)
[2020-07-30] MEDS: DEXAMETHASONE SOD PHOSPHATE 10 MG/1 ML VIAL IVPUSH SCH (10:36)
[2020-07-30] MEDS: ZINC SULFATE 220 MG CAPSULE (FP) PO SCH (10:43)
[2020-07-30] MEDS: BUDESONIDE/FORMETEROL FUMARATE 160/4.5 mcg INHALER IH SCH ×2 (10:44→22:04)
[2020-07-30] MEDS: ASCORBIC ACID 500 MG TABLET (FP) PO SCH ×2 (10:44→22:04)
[2020-07-30] MEDS: PANTOPRAZOLE 40 MG TABLET PO SCH (10:44)
[2020-07-30] MEDS: CEFTRIAXONE 1 GM in DEXTROSE 5%-WATER - 50 ML IVPB SCH (10:44)
[2020-07-30] MEDS: MELATONIN 1 MG TABLET PO SCH (22:04)
[2020-07-31] MEDS: guaiFENesin/CODEINE 10 ML UNIT-DOSE CUPS PO SCH ×3 (06:26→17:03)
[2020-07-31] MEDS ORDERED: cefTRIAXone SODIUM 1 GM VIAL ONE (10:35)
[2020-07-31] MEDS ORDERED: DEXTROSE 5%-WATER - 50 ML IVPB ONE (10:36)
[2020-07-31] MEDS: DOCUSATE SODIUM 100 MG CAPSULE (FP) PO SCH ×2 (10:47→21:27)
[2020-07-31] MEDS: PANTOPRAZOLE 40 MG TABLET PO SCH (10:48)
[2020-07-31] MEDS: DEXAMETHASONE SOD PHOSPHATE 10 MG/1 ML VIAL IVPUSH SCH (10:48)
[2020-07-31] MEDS: ENOXAPARIN NA (PORCINE) 100 MG/1 ML DISP.SYRIN SQ SCH ×2 (10:48→21:28)
[2020-07-31] MEDS: ZINC SULFATE 220 MG CAPSULE (FP) PO SCH (10:48)
[2020-07-31] MEDS: ASCORBIC ACID 500 MG TABLET (FP) PO SCH ×2 (10:49→21:48)
[2020-07-31] MEDS: BUDESONIDE/FORMETEROL FUMARATE 160/4.5 mcg INHALER IH SCH ×2 (10:49→21:28)
[2020-07-31] MEDS: CEFTRIAXONE 1 GM in DEXTROSE 5%-WATER - 50 ML IVPB SCH (10:49)
[2020-07-31] MEDS: MELATONIN 1 MG TABLET PO SCH (21:27)
[2020-08-01] MEDS: guaiFENesin/CODEINE 10 ML UNIT-DOSE CUPS PO SCH ×4 (00:49→18:14)
[2020-08-01 09:29] LABS: BASO % 0.7 % (0-2.0); EOS % 6.1 % (0-4.5); HEMATOCRIT 44.5 % (35.4-49); HEMOGLOBIN 14.6 GM/dL (11.7-16.9); LYMPH % 17.4 % (8-40); MCH 29.2 pg (25.7-33.7); MCHC 32.9 g/dl (32.0-35.9); MEAN CELL VOLUME 88.9 fl (80-96); MEAN PLT VOLUME 7.5 fl (7.5-11.1); MONO % 5.4 % (3.8-10.2); NEUT % 70.4 % (42.8-82.8); PLATELET COUNT 243 K/MM3 (134-434); RBC 5.01 M/mm3 (4.00-5.60); RDW 13.7 % (11.9-15.9); WHITE BLOOD COUNT 19.3 K/mm3 (4.0-10.0)
[2020-08-01 09:55] LABS: ALBUMIN 3.1 g/dl (3.4-5.0); CALCIUM 8.3 mg/dL (8.5-10.1)
[2020-08-01 09:56] LABS: MAGNESIUM 2.5 mg/dL (1.8-2.4)
[2020-08-01 09:59] LABS: CREATININE 0.5 mg/dL (0.55-1.3)
[2020-08-01] MEDS ORDERED: cefTRIAXone SODIUM 1 GM VIAL ONE (09:59)
[2020-08-01] MEDS ORDERED: DEXTROSE 5%-WATER - 50 ML IVPB ONE (09:59)
[2020-08-01 10:00] LABS: BILIRUBIN,TOTAL 0.5 mg/dL (0.2-1); TOT PROT 6.6 g/dl (6.4-8.2)
[2020-08-01] MEDS: DOCUSATE SODIUM 100 MG CAPSULE (FP) PO SCH ×2 (10:46→21:44)
[2020-08-01] MEDS: PANTOPRAZOLE 40 MG TABLET PO SCH (10:46)
[2020-08-01] MEDS: ASCORBIC ACID 500 MG TABLET (FP) PO SCH ×2 (10:46→21:44)
[2020-08-01] MEDS: DEXAMETHASONE SOD PHOSPHATE 10 MG/1 ML VIAL IVPUSH SCH (10:47)
[2020-08-01] MEDS: ENOXAPARIN NA (PORCINE) 100 MG/1 ML DISP.SYRIN SQ SCH ×2 (10:47→21:43)
[2020-08-01] MEDS: ZINC SULFATE 220 MG CAPSULE (FP) PO SCH (10:47)
[2020-08-01] MEDS: CEFTRIAXONE 1 GM in DEXTROSE 5%-WATER - 50 ML IVPB SCH (10:48)
[2020-08-01] MEDS: BUDESONIDE/FORMETEROL FUMARATE 160/4.5 mcg INHALER IH SCH ×2 (10:48→21:44)
[2020-08-01] MEDS: ACETAMINOPHEN 325 MG TABLET (FP) PO PRN (12:43)
[2020-08-01 12:45] LABS: ANISOCYTOSIS 0; MACROCYTOSIS 0; PLATELET ESTIMATE NORMAL
[2020-08-01] MEDS: MELATONIN 1 MG TABLET PO SCH (21:43)
[2020-08-02] MEDS: guaiFENesin/CODEINE 10 ML UNIT-DOSE CUPS PO SCH ×4 (01:19→19:08)
[2020-08-02 07:39] LABS: CHLORIDE 96 mmol/L (98-107); SODIUM 135 mmol/L (136-145)
[2020-08-02 07:45] LABS: MAGNESIUM 2.5 mg/dL (1.8-2.4)
[2020-08-02 07:46] LABS: CALCIUM 8.3 mg/dL (8.5-10.1)
[2020-08-02 07:47] LABS: ALBUMIN 2.9 g/dl (3.4-5.0); ANION GAP 5 MMOL/L (8-16); CO2 33 mmol/L (21-32); GLUCOSE,RANDOM 93 mg/dL (74-106)
[2020-08-02 07:48] LABS: CREATININE 0.4 mg/dL (0.55-1.3)
[2020-08-02 07:49] LABS: ALK PHOS 98 U/L (45-117); SGOT/AST 31 U/L (15-37)
[2020-08-02 07:50] LABS: BILIRUBIN,TOTAL 0.5 mg/dL (0.2-1)
[2020-08-02 07:53] LABS: SGPT/ALT 64 U/L (13-61)
[2020-08-02 08:03] LABS: BASO % 2.4 % (0-2.0); EOS % 7.1 % (0-4.5); HEMATOCRIT 41.5 % (35.4-49); HEMOGLOBIN 13.8 GM/dL (11.7-16.9); LYMPH % 11.2 % (8-40); MCH 29.4 pg (25.7-33.7); MCHC 33.2 g/dl (32.0-35.9); MEAN CELL VOLUME 88.4 fl (80-96); MEAN PLT VOLUME 8.5 fl (7.5-11.1); MONO % 3.7 % (3.8-10.2); NEUT % 75.6 % (42.8-82.8); PLATELET COUNT 223 K/MM3 (134-434); RDW 13.6 % (11.9-15.9); WHITE BLOOD COUNT 18.4 K/mm3 (4.0-10.0)
[2020-08-02] MEDS: ENOXAPARIN NA (PORCINE) 100 MG/1 ML DISP.SYRIN SQ SCH ×2 (10:24→21:05)
[2020-08-02] MEDS: PANTOPRAZOLE 40 MG TABLET PO SCH (10:25)
[2020-08-02] MEDS: DOCUSATE SODIUM 100 MG CAPSULE (FP) PO SCH ×2 (10:25→21:04)
[2020-08-02] MEDS: DEXAMETHASONE SOD PHOSPHATE 10 MG/1 ML VIAL IVPUSH SCH (10:25)
[2020-08-02] MEDS: ZINC SULFATE 220 MG CAPSULE (FP) PO SCH (10:25)
[2020-08-02] MEDS: ASCORBIC ACID 500 MG TABLET (FP) PO SCH ×2 (10:25→21:04)
[2020-08-02] MEDS: BUDESONIDE/FORMETEROL FUMARATE 160/4.5 mcg INHALER IH SCH ×2 (10:25→21:07)
[2020-08-02 12:00] LABS: ANISOCYTOSIS 0; MACROCYTOSIS 0
[2020-08-02] MEDS: MELATONIN 1 MG TABLET PO SCH (21:05)
[2020-08-03] MEDS: guaiFENesin/CODEINE 10 ML UNIT-DOSE CUPS PO SCH ×4 (05:17→17:20)
[2020-08-03 07:18] LABS: BASO % 0.6 % (0-2.0); EOS % 8.5 % (0-4.5); HEMATOCRIT 41.1 % (35.4-49); HEMOGLOBIN 13.6 GM/dL (11.7-16.9); LYMPH % 18.1 % (8-40); MCH 29.4 pg (25.7-33.7); MCHC 33.1 g/dl (32.0-35.9); MEAN CELL VOLUME 88.7 fl (80-96); MEAN PLT VOLUME 7.6 fl (7.5-11.1); MONO % 0.5 % (3.8-10.2); NEUT % 72.3 % (42.8-82.8); PLATELET COUNT 239 K/MM3 (134-434); RBC 4.63 M/mm3 (4.00-5.60); RDW 13.7 % (11.9-15.9); WHITE BLOOD COUNT 16.7 K/mm3 (4.0-10.0)
[2020-08-03 07:33] LABS: CHLORIDE 98 mmol/L (98-107); SODIUM 136 mmol/L (136-145)
[2020-08-03 07:36] LABS: CALCIUM 8.1 mg/dL (8.5-10.1)
[2020-08-03 07:37] LABS: ALBUMIN 3.1 g/dl (3.4-5.0); ANION GAP 4 MMOL/L (8-16); BLOOD UREA NITROGEN 12.5 mg/dL (7-18); CO2 34 mmol/L (21-32); GLUCOSE,RANDOM 97 mg/dL (74-106); MAGNESIUM 2.5 mg/dL (1.8-2.4)
[2020-08-03 07:40] LABS: CREATININE 0.4 mg/dL (0.55-1.3); SGOT/AST 29 U/L (15-37); SGPT/ALT 60 U/L (13-61)
[2020-08-03 07:41] LABS: BILIRUBIN,TOTAL 0.5 mg/dL (0.2-1)
[2020-08-03 07:43] LABS: ALK PHOS 97 U/L (45-117)
[2020-08-03 10:28] LABS: ANISOCYTOSIS 1+; MACROCYTOSIS 0; PLATELET ESTIMATE NORMAL
[2020-08-03] MEDS: BUDESONIDE/FORMETEROL FUMARATE 160/4.5 mcg INHALER IH SCH ×2 (10:50→22:31)
[2020-08-03] MEDS: ENOXAPARIN NA (PORCINE) 100 MG/1 ML DISP.SYRIN SQ SCH ×2 (10:50→22:30)
[2020-08-03] MEDS: PANTOPRAZOLE 40 MG TABLET PO SCH (10:50)
[2020-08-03] MEDS: ASCORBIC ACID 500 MG TABLET (FP) PO SCH ×2 (10:50→22:31)
[2020-08-03] MEDS: ZINC SULFATE 220 MG CAPSULE (FP) PO SCH (10:50)
[2020-08-03] MEDS: DOCUSATE SODIUM 100 MG CAPSULE (FP) PO SCH ×2 (10:50→22:30)
[2020-08-03] MEDS: DEXAMETHASONE SOD PHOSPHATE 10 MG/1 ML VIAL IVPUSH SCH (10:51)
[2020-08-03] MEDS: MELATONIN 1 MG TABLET PO SCH (22:31)
[2020-08-03] MEDS: ACETAMINOPHEN 325 MG TABLET (FP) PO PRN (22:33)
[2020-08-04] MEDS: guaiFENesin/CODEINE 10 ML UNIT-DOSE CUPS PO SCH ×4 (00:05→17:02)
[2020-08-04 07:08] LABS: SARS-CoV-2 NAA Not Detected (Not Detected)
[2020-08-04 07:35] LABS: BASO % 0.9 % (0-2.0); EOS % 7.9 % (0-4.5); HEMOGLOBIN 13.1 GM/dL (11.7-16.9); LYMPH % 18.4 % (8-40); MCH 29.1 pg (25.7-33.7); MCHC 32.7 g/dl (32.0-35.9); MEAN CELL VOLUME 89.2 fl (80-96); MEAN PLT VOLUME 7.5 fl (7.5-11.1); MONO % 5.1 % (3.8-10.2); NEUT % 67.7 % (42.8-82.8); PLATELET COUNT 245 K/MM3 (134-434); RBC 4.49 M/mm3 (4.00-5.60); RDW 13.9 % (11.9-15.9); WHITE BLOOD COUNT 16.8 K/mm3 (4.0-10.0)
[2020-08-04 07:57] LABS: CHLORIDE 95 mmol/L (98-107); SODIUM 134 mmol/L (136-145)
[2020-08-04 08:09] LABS: ANION GAP 6 MMOL/L (8-16); BLOOD UREA NITROGEN 10.8 mg/dL (7-18); CALCIUM 8.5 mg/dL (8.5-10.1); CO2 34 mmol/L (21-32); GLUCOSE,RANDOM 135 mg/dL (74-106); MAGNESIUM 2.6 mg/dL (1.8-2.4)
[2020-08-04 08:12] LABS: CREATININE 0.5 mg/dL (0.55-1.3); SGOT/AST 26 U/L (15-37); SGPT/ALT 57 U/L (13-61)
[2020-08-04 08:14] LABS: BILIRUBIN,TOTAL 0.5 mg/dL (0.2-1)
[2020-08-04 08:15] LABS: ALK PHOS 96 U/L (45-117)
[2020-08-04] MEDS: DEXAMETHASONE SOD PHOSPHATE 10 MG/1 ML VIAL IVPUSH SCH (09:15)
[2020-08-04] MEDS: ENOXAPARIN NA (PORCINE) 100 MG/1 ML DISP.SYRIN SQ SCH (09:15)
[2020-08-04] MEDS: BUDESONIDE/FORMETEROL FUMARATE 160/4.5 mcg INHALER IH SCH ×2 (09:16→21:51)
[2020-08-04] MEDS: DOCUSATE SODIUM 100 MG CAPSULE (FP) PO SCH ×2 (09:16→21:51)
[2020-08-04] MEDS: ASCORBIC ACID 500 MG TABLET (FP) PO SCH ×2 (09:16→21:50)
[2020-08-04] MEDS: PANTOPRAZOLE 40 MG TABLET PO SCH (09:16)
[2020-08-04] MEDS: ZINC SULFATE 220 MG CAPSULE (FP) PO SCH (09:16)
[2020-08-04 09:19] LABS: ANISOCYTOSIS 0; MACROCYTOSIS 0; PLATELET ESTIMATE NORMAL
[2020-08-04] MEDS ORDERED: PT OWN MED DRAWER 7, Y5N ONE (14:25)
[2020-08-04] MEDS: APIXABAN 5 MG TABLET PO SCH (21:50)
[2020-08-04] MEDS: MELATONIN 1 MG TABLET PO SCH (21:50)
[2020-08-04] MEDS: ACETAMINOPHEN 325 MG TABLET (FP) PO PRN (21:57)
[2020-08-05] MEDS: guaiFENesin/CODEINE 10 ML UNIT-DOSE CUPS PO SCH ×5 (01:18→22:00)
[2020-08-05] MEDS: DOCUSATE SODIUM 100 MG CAPSULE (FP) PO SCH ×2 (09:04→22:54)
[2020-08-05] MEDS: ZINC SULFATE 220 MG CAPSULE (FP) PO SCH (09:04)
[2020-08-05] MEDS: ASCORBIC ACID 500 MG TABLET (FP) PO SCH ×2 (09:04→22:59)
[2020-08-05] MEDS: DEXAMETHASONE SOD PHOSPHATE 10 MG/1 ML VIAL IVPUSH SCH (09:04)
[2020-08-05] MEDS: APIXABAN 5 MG TABLET PO SCH ×2 (09:05→22:54)
[2020-08-05] MEDS: BUDESONIDE/FORMETEROL FUMARATE 160/4.5 mcg INHALER IH SCH ×2 (09:05→22:59)
[2020-08-05] MEDS: PANTOPRAZOLE 40 MG TABLET PO SCH (09:05)
[2020-08-05] MEDS: MELATONIN 1 MG TABLET PO SCH (22:54)
[2020-08-05] MEDS: ACETAMINOPHEN 325 MG TABLET (FP) PO PRN (22:56)
[2020-08-06] MEDS: guaiFENesin/CODEINE 10 ML UNIT-DOSE CUPS PO SCH ×4 (06:09→22:00)
[2020-08-06] MEDS: PANTOPRAZOLE 40 MG TABLET PO SCH (09:31)
[2020-08-06] MEDS: APIXABAN 5 MG TABLET PO SCH ×2 (09:31→22:14)
[2020-08-06] MEDS: ASCORBIC ACID 500 MG TABLET (FP) PO SCH ×2 (09:31→22:16)
[2020-08-06] MEDS: DEXAMETHASONE SOD PHOSPHATE 10 MG/1 ML VIAL IVPUSH SCH (09:31)
[2020-08-06] MEDS: DOCUSATE SODIUM 100 MG CAPSULE (FP) PO SCH ×2 (09:31→22:14)
[2020-08-06] MEDS: ZINC SULFATE 220 MG CAPSULE (FP) PO SCH (09:31)
[2020-08-06] MEDS: BUDESONIDE/FORMETEROL FUMARATE 160/4.5 mcg INHALER IH SCH ×2 (09:31→22:16)
[2020-08-06] MEDS ORDERED: PT OWN MED DRAWER 7, Y5N ONE (11:52)
[2020-08-06 12:52] LABS: BASO % 0.6 % (0-2.0); EOS % 5.5 % (0-4.5); HEMATOCRIT 42.9 % (35.4-49); HEMOGLOBIN 14.4 GM/dL (11.7-16.9); MCH 29.5 pg (25.7-33.7); MCHC 33.5 g/dl (32.0-35.9); MEAN CELL VOLUME 88.2 fl (80-96); MEAN PLT VOLUME 7.1 fl (7.5-11.1); MONO % 2.6 % (3.8-10.2); NEUT % 84.3 % (42.8-82.8); PLATELET COUNT 336 K/MM3 (134-434); RBC 4.86 M/mm3 (4.00-5.60); RDW 14.4 % (11.9-15.9); WHITE BLOOD COUNT 17.9 K/mm3 (4.0-10.0)
[2020-08-06 13:12] LABS: CHLORIDE 94 mmol/L (98-107)
[2020-08-06 13:18] LABS: SGOT/AST 32 U/L (15-37)
[2020-08-06 13:23] LABS: ALBUMIN 3.4 g/dl (3.4-5.0); BLOOD UREA NITROGEN 10.6 mg/dL (7-18); CO2 26 mmol/L (21-32); GLUCOSE,RANDOM 138 mg/dL (74-106)
[2020-08-06 13:26] LABS: CREATININE 0.4 mg/dL (0.55-1.3); SGPT/ALT 50 U/L (13-61)
[2020-08-06 13:28] LABS: BILIRUBIN,TOTAL 0.4 mg/dL (0.2-1); TOT PROT 6.7 g/dl (6.4-8.2)
[2020-08-06 13:40] LABS: ALK PHOS 32 U/L (45-117)
[2020-08-06 14:03] LABS: SODIUM 126 mmol/L (136-145)
[2020-08-06 14:11] LABS: ANION GAP 7 MMOL/L (8-16)
[2020-08-06 16:59] LABS: CALCIUM 8.5 mg/dL (8.5-10.1)
[2020-08-06 17:00] LABS: ALBUMIN 3.3 g/dl (3.4-5.0); BLOOD UREA NITROGEN 10.6 mg/dL (7-18)
[2020-08-06 17:03] LABS: CREATININE 0.9 mg/dL (0.55-1.3)
[2020-08-06 17:05] LABS: BILIRUBIN,TOTAL 0.4 mg/dL (0.2-1); TOT PROT 6.2 g/dl (6.4-8.2)
[2020-08-06] MEDS: MELATONIN 1 MG TABLET PO SCH (22:13)
[2020-08-06] MEDS: ACETAMINOPHEN 325 MG TABLET (FP) PO PRN (22:17)
[2020-08-07] MEDS: guaiFENesin/CODEINE 10 ML UNIT-DOSE CUPS PO SCH ×4 (06:22→23:37)
[2020-08-07 07:17] LABS: BASO % 0.9 % (0-2.0); CHLORIDE 97 mmol/L (98-107); EOS % 7.6 % (0-4.5); HEMATOCRIT 39.4 % (35.4-49); HEMOGLOBIN 12.9 GM/dL (11.7-16.9); LYMPH % 15.6 % (8-40); MCH 29.4 pg (25.7-33.7); MCHC 32.9 g/dl (32.0-35.9); MEAN CELL VOLUME 89.6 fl (80-96); MEAN PLT VOLUME 7.3 fl (7.5-11.1); MONO % 5.6 % (3.8-10.2); NEUT % 70.3 % (42.8-82.8); PLATELET COUNT 328 K/MM3 (134-434); RDW 14.4 % (11.9-15.9); SODIUM 135 mmol/L (136-145); WHITE BLOOD COUNT 21.1 K/mm3 (4.0-10.0)
[2020-08-07 07:28] LABS: ALBUMIN 3.3 g/dl (3.4-5.0); ANION GAP 6 MMOL/L (8-16); BLOOD UREA NITROGEN 13.3 mg/dL (7-18); CALCIUM 8.4 mg/dL (8.5-10.1); CO2 32 mmol/L (21-32); GLUCOSE,RANDOM 104 mg/dL (74-106); MAGNESIUM 2.4 mg/dL (1.8-2.4)
[2020-08-07 07:31] LABS: CREATININE 0.4 mg/dL (0.55-1.3); SGOT/AST 24 U/L (15-37); SGPT/ALT 43 U/L (13-61)
[2020-08-07 07:33] LABS: BILIRUBIN,TOTAL 0.4 mg/dL (0.2-1)
[2020-08-07 07:34] LABS: ALK PHOS 97 U/L (45-117)
[2020-08-07] MEDS: PANTOPRAZOLE 40 MG TABLET PO SCH (09:12)
[2020-08-07] MEDS: DEXAMETHASONE SOD PHOSPHATE 10 MG/1 ML VIAL IVPUSH SCH (09:12)
[2020-08-07] MEDS: APIXABAN 5 MG TABLET PO SCH ×2 (09:12→21:19)
[2020-08-07] MEDS: DOCUSATE SODIUM 100 MG CAPSULE (FP) PO SCH ×2 (09:12→21:19)
[2020-08-07] MEDS: ASCORBIC ACID 500 MG TABLET (FP) PO SCH ×2 (09:12→21:19)
[2020-08-07] MEDS: ZINC SULFATE 220 MG CAPSULE (FP) PO SCH (09:12)
[2020-08-07] MEDS: BUDESONIDE/FORMETEROL FUMARATE 160/4.5 mcg INHALER IH SCH ×2 (09:12→21:19)
[2020-08-07 10:12] LABS: ANISOCYTOSIS 0; MACROCYTOSIS 0; PLATELET ESTIMATE NORMAL
[2020-08-07] MEDS: MELATONIN 1 MG TABLET PO SCH (21:19)
[2020-08-08] MEDS: guaiFENesin/CODEINE 10 ML UNIT-DOSE CUPS PO SCH ×3 (05:50→17:04)
[2020-08-08] MEDS: DEXAMETHASONE SOD PHOSPHATE 10 MG/1 ML VIAL IVPUSH SCH (10:08)
[2020-08-08] MEDS: ASCORBIC ACID 500 MG TABLET (FP) PO SCH ×2 (10:08→21:34)
[2020-08-08] MEDS: APIXABAN 5 MG TABLET PO SCH ×2 (10:08→21:34)
[2020-08-08] MEDS: PANTOPRAZOLE 40 MG TABLET PO SCH (10:08)
[2020-08-08] MEDS: ZINC SULFATE 220 MG CAPSULE (FP) PO SCH (10:08)
[2020-08-08] MEDS: DOCUSATE SODIUM 100 MG CAPSULE (FP) PO SCH ×2 (10:09→21:34)
[2020-08-08] MEDS: BUDESONIDE/FORMETEROL FUMARATE 160/4.5 mcg INHALER IH SCH ×2 (10:09→21:37)
[2020-08-08 12:18] LABS: BASO % 0.5 % (0-2.0); EOS % 8.5 % (0-4.5); HEMATOCRIT 39.2 % (35.4-49); HEMOGLOBIN 12.9 GM/dL (11.7-16.9); LYMPH % 10.7 % (8-40); MCH 29.4 pg (25.7-33.7); MEAN CELL VOLUME 89.1 fl (80-96); MONO % 6.2 % (3.8-10.2); NEUT % 74.1 % (42.8-82.8); PLATELET COUNT 332 K/MM3 (134-434); RDW 14.7 % (11.9-15.9); WHITE BLOOD COUNT 18.8 K/mm3 (4.0-10.0)
[2020-08-08 12:40] LABS: CHLORIDE 92 mmol/L (98-107); SODIUM 131 mmol/L (136-145)
[2020-08-08 12:44] LABS: CALCIUM 8.7 mg/dL (8.5-10.1)
[2020-08-08 12:45] LABS: ANION GAP 7 MMOL/L (8-16); CO2 32 mmol/L (21-32); GLUCOSE,RANDOM 165 mg/dL (74-106); MAGNESIUM 2.4 mg/dL (1.8-2.4)
[2020-08-08 12:46] LABS: ALBUMIN 3.3 g/dl (3.4-5.0)
[2020-08-08 12:48] LABS: CREATININE 0.5 mg/dL (0.55-1.3); SGOT/AST 23 U/L (15-37); SGPT/ALT 38 U/L (13-61)
[2020-08-08 12:50] LABS: BILIRUBIN,TOTAL 0.5 mg/dL (0.2-1)
[2020-08-08 12:51] LABS: ALK PHOS 111 U/L (45-117)
[2020-08-08] MEDS: MELATONIN 1 MG TABLET PO SCH (21:34)
[2020-08-09] MEDS: guaiFENesin/CODEINE 10 ML UNIT-DOSE CUPS PO SCH ×5 (00:05→17:09)
[2020-08-09] MEDS: DEXAMETHASONE SOD PHOSPHATE 10 MG/1 ML VIAL IVPUSH SCH (09:19)
[2020-08-09] MEDS: APIXABAN 5 MG TABLET PO SCH ×2 (09:20→22:25)
[2020-08-09] MEDS: PANTOPRAZOLE 40 MG TABLET PO SCH (09:20)
[2020-08-09] MEDS: ZINC SULFATE 220 MG CAPSULE (FP) PO SCH (09:20)
[2020-08-09] MEDS: ASCORBIC ACID 500 MG TABLET (FP) PO SCH ×2 (09:20→22:25)
[2020-08-09] MEDS: BUDESONIDE/FORMETEROL FUMARATE 160/4.5 mcg INHALER IH SCH ×2 (09:20→22:25)
[2020-08-09] MEDS: DOCUSATE SODIUM 100 MG CAPSULE (FP) PO SCH ×2 (09:20→22:25)
[2020-08-09 12:00] LABS: BASO % 0.7 % (0-2.0); EOS % 6.8 % (0-4.5); HEMATOCRIT 39.9 % (35.4-49); HEMOGLOBIN 13.3 GM/dL (11.7-16.9); LYMPH % 6.4 % (8-40); MCH 29.5 pg (25.7-33.7); MCHC 33.5 g/dl (32.0-35.9); MEAN CELL VOLUME 88.3 fl (80-96); MEAN PLT VOLUME 6.8 fl (7.5-11.1); MONO % 3.1 % (3.8-10.2); PLATELET COUNT 375 K/MM3 (134-434); RBC 4.52 M/mm3 (4.00-5.60); RDW 14.7 % (11.9-15.9); WHITE BLOOD COUNT 23.1 K/mm3 (4.0-10.0)
[2020-08-09 12:14] LABS: CHLORIDE 97 mmol/L (98-107); SODIUM 135 mmol/L (136-145)
[2020-08-09 12:17] LABS: CALCIUM 8.7 mg/dL (8.5-10.1)
[2020-08-09 12:18] LABS: ALBUMIN 3.6 g/dl (3.4-5.0); ANION GAP 7 MMOL/L (8-16); BLOOD UREA NITROGEN 11.4 mg/dL (7-18); CO2 31 mmol/L (21-32); GLUCOSE,RANDOM 131 mg/dL (74-106); MAGNESIUM 2.4 mg/dL (1.8-2.4)
[2020-08-09 12:21] LABS: CREATININE 0.5 mg/dL (0.55-1.3); SGOT/AST 28 U/L (15-37); SGPT/ALT 36 U/L (13-61)
[2020-08-09 12:22] LABS: BILIRUBIN,TOTAL 0.6 mg/dL (0.2-1); TOT PROT 6.3 g/dl (6.4-8.2)
[2020-08-09 12:23] LABS: ALK PHOS 117 U/L (45-117)
[2020-08-09 14:03] LABS: ANISOCYTOSIS 0; HELMET CELLS 0; HOWELL-JOLLY BODIES 0; MACROCYTOSIS 0; OVALOCYTE 0; PLATELET ESTIMATE NORMAL; ROULEAU 0; SICKELED CELLS 0; TARGET CELLS 0; TEAR DROP CELLS 0; TOXIC GRANULATION 0
[2020-08-09] MEDS: MELATONIN 1 MG TABLET PO SCH (22:25)
[2020-08-10] MEDS: guaiFENesin/CODEINE 10 ML UNIT-DOSE CUPS PO SCH ×4 (00:20→17:01)
[2020-08-10] MEDS: ASCORBIC ACID 500 MG TABLET (FP) PO SCH ×2 (10:01→21:28)
[2020-08-10] MEDS: DEXAMETHASONE SOD PHOSPHATE 10 MG/1 ML VIAL IVPUSH SCH (10:02)
[2020-08-10] MEDS: ZINC SULFATE 220 MG CAPSULE (FP) PO SCH (10:02)
[2020-08-10] MEDS: DOCUSATE SODIUM 100 MG CAPSULE (FP) PO SCH ×2 (10:02→21:28)
[2020-08-10] MEDS: PANTOPRAZOLE 40 MG TABLET PO SCH (10:02)
[2020-08-10] MEDS: APIXABAN 5 MG TABLET PO SCH ×2 (10:02→21:28)
[2020-08-10] MEDS: BUDESONIDE/FORMETEROL FUMARATE 160/4.5 mcg INHALER IH SCH ×3 (10:10→22:46)
[2020-08-10 13:19] LABS: BASO % 0.7 % (0-2.0); EOS % 4.5 % (0-4.5); HEMATOCRIT 39.8 % (35.4-49); HEMOGLOBIN 13.4 GM/dL (11.7-16.9); LYMPH % 4.2 % (8-40); MCH 29.8 pg (25.7-33.7); MCHC 33.7 g/dl (32.0-35.9); MEAN CELL VOLUME 88.5 fl (80-96); MEAN PLT VOLUME 6.6 fl (7.5-11.1); NEUT % 85.6 % (42.8-82.8); PLATELET COUNT 365 K/MM3 (134-434); RDW 14.7 % (11.9-15.9); WHITE BLOOD COUNT 15.8 K/mm3 (4.0-10.0)
[2020-08-10 13:35] LABS: CHLORIDE 94 mmol/L (98-107); SODIUM 133 mmol/L (136-145)
[2020-08-10 13:39] LABS: ANION GAP 4 MMOL/L (8-16); CO2 35 mmol/L (21-32)
[2020-08-10 13:40] LABS: ALBUMIN 3.5 g/dl (3.4-5.0); BLOOD UREA NITROGEN 13.1 mg/dL (7-18); GLUCOSE,RANDOM 134 mg/dL (74-106); MAGNESIUM 2.6 mg/dL (1.8-2.4)
[2020-08-10 13:43] LABS: CREATININE 0.5 mg/dL (0.55-1.3); SGOT/AST 29 U/L (15-37); SGPT/ALT 34 U/L (13-61)
[2020-08-10 13:44] LABS: BILIRUBIN,TOTAL 0.6 mg/dL (0.2-1); TOT PROT 6.3 g/dl (6.4-8.2)
[2020-08-10 13:46] LABS: ALK PHOS 120 U/L (45-117)
[2020-08-10] MEDS: MELATONIN 1 MG TABLET PO SCH (21:28)
[2020-08-11] MEDS: guaiFENesin/CODEINE 10 ML UNIT-DOSE CUPS PO SCH ×5 (00:57→22:06)
[2020-08-11 06:59] LABS: BASO % 0.8 % (0-2.0); EOS % 5.1 % (0-4.5); HEMATOCRIT 37.9 % (35.4-49); HEMOGLOBIN 12.7 GM/dL (11.7-16.9); LYMPH % 11.2 % (8-40); MCH 29.8 pg (25.7-33.7); MCHC 33.4 g/dl (32.0-35.9); MEAN CELL VOLUME 89.2 fl (80-96); MONO % 5.6 % (3.8-10.2); NEUT % 77.3 % (42.8-82.8); PLATELET COUNT 309 K/MM3 (134-434); RBC 4.25 M/mm3 (4.00-5.60); RDW 14.7 % (11.9-15.9); WHITE BLOOD COUNT 16.1 K/mm3 (4.0-10.0)
[2020-08-11 07:17] LABS: CHLORIDE 96 mmol/L (98-107); SODIUM 135 mmol/L (136-145)
[2020-08-11 07:19] LABS: CALCIUM 8.2 mg/dL (8.5-10.1)
[2020-08-11 07:20] LABS: ALBUMIN 3.4 g/dl (3.4-5.0); ANION GAP 4 MMOL/L (8-16); BLOOD UREA NITROGEN 12.4 mg/dL (7-18); CO2 35 mmol/L (21-32); GLUCOSE,RANDOM 108 mg/dL (74-106); MAGNESIUM 2.4 mg/dL (1.8-2.4)
[2020-08-11 07:23] LABS: CREATININE 0.4 mg/dL (0.55-1.3); SGOT/AST 24 U/L (15-37); SGPT/ALT 29 U/L (13-61)
[2020-08-11 07:24] LABS: BILIRUBIN,TOTAL 0.6 mg/dL (0.2-1)
[2020-08-11 07:25] LABS: TOT PROT 5.9 g/dl (6.4-8.2)
[2020-08-11 07:26] LABS: ALK PHOS 111 U/L (45-117)
[2020-08-11] MEDS ORDERED: PT OWN MED DRAWER 7, Y5N ONE (09:13)
[2020-08-11] MEDS: PANTOPRAZOLE 40 MG TABLET PO SCH (09:35)
[2020-08-11] MEDS: ASCORBIC ACID 500 MG TABLET (FP) PO SCH ×2 (09:35→22:06)
[2020-08-11] MEDS: DEXAMETHASONE SOD PHOSPHATE 10 MG/1 ML VIAL IVPUSH SCH (09:35)
[2020-08-11] MEDS: APIXABAN 5 MG TABLET PO SCH ×2 (09:35→22:06)
[2020-08-11] MEDS: ZINC SULFATE 220 MG CAPSULE (FP) PO SCH (09:35)
[2020-08-11] MEDS: DOCUSATE SODIUM 100 MG CAPSULE (FP) PO SCH ×2 (09:35→22:06)
[2020-08-11] MEDS: BUDESONIDE/FORMETEROL FUMARATE 160/4.5 mcg INHALER IH SCH ×2 (09:36→22:06)
[2020-08-11 10:33] LABS: ANISOCYTOSIS 0; MACROCYTOSIS 0; PLATELET ESTIMATE NORMAL; TOXIC GRANULATION 2+
[2020-08-11] MEDS: MELATONIN 1 MG TABLET PO SCH (22:06)
[2020-08-12] MEDS: guaiFENesin/CODEINE 10 ML UNIT-DOSE CUPS PO SCH ×5 (03:58→23:35)
[2020-08-12] MEDS: ASCORBIC ACID 500 MG TABLET (FP) PO SCH ×2 (09:23→21:29)
[2020-08-12] MEDS: PANTOPRAZOLE 40 MG TABLET PO SCH (09:23)
[2020-08-12] MEDS: ZINC SULFATE 220 MG CAPSULE (FP) PO SCH (09:23)
[2020-08-12] MEDS: APIXABAN 5 MG TABLET PO SCH ×2 (09:23→21:29)
[2020-08-12] MEDS: BUDESONIDE/FORMETEROL FUMARATE 160/4.5 mcg INHALER IH SCH ×2 (09:23→21:36)
[2020-08-12] MEDS: DOCUSATE SODIUM 100 MG CAPSULE (FP) PO SCH ×2 (09:23→21:29)
[2020-08-12] MEDS: DEXAMETHASONE SOD PHOSPHATE 10 MG/1 ML VIAL IVPUSH SCH (09:23)
[2020-08-12 11:43] LABS: BASO % 0.9 % (0-2.0); EOS % 6.7 % (0-4.5); HEMATOCRIT 37.5 % (35.4-49); HEMOGLOBIN 12.6 GM/dL (11.7-16.9); LYMPH % 14.1 % (8-40); MCH 29.8 pg (25.7-33.7); MCHC 33.6 g/dl (32.0-35.9); MEAN CELL VOLUME 88.6 fl (80-96); MEAN PLT VOLUME 6.7 fl (7.5-11.1); MONO % 6.5 % (3.8-10.2); NEUT % 71.8 % (42.8-82.8); PLATELET COUNT 296 K/MM3 (134-434); RBC 4.23 M/mm3 (4.00-5.60); RDW 14.9 % (11.9-15.9); WHITE BLOOD COUNT 16.3 K/mm3 (4.0-10.0)
[2020-08-12 12:08] LABS: CALCIUM 8.3 mg/dL (8.5-10.1)
[2020-08-12 12:09] LABS: ALBUMIN 3.4 g/dl (3.4-5.0); BLOOD UREA NITROGEN 13.5 mg/dL (7-18); MAGNESIUM 2.3 mg/dL (1.8-2.4)
[2020-08-12 12:12] LABS: CREATININE 0.5 mg/dL (0.55-1.3)
[2020-08-12 12:13] LABS: BILIRUBIN,TOTAL 0.7 mg/dL (0.2-1); TOT PROT 5.8 g/dl (6.4-8.2)
[2020-08-12] MEDS: MELATONIN 1 MG TABLET PO SCH (21:29)
[2020-08-13] MEDS: guaiFENesin/CODEINE 10 ML UNIT-DOSE CUPS PO SCH ×4 (06:06→23:50)
[2020-08-13 08:26] LABS: BASO % 0.8 % (0-2.0); EOS % 4.7 % (0-4.5); HEMATOCRIT 35.5 % (35.4-49); LYMPH % 15.1 % (8-40); MCH 29.7 pg (25.7-33.7); MCHC 33.8 g/dl (32.0-35.9); MEAN CELL VOLUME 87.9 fl (80-96); MEAN PLT VOLUME 6.8 fl (7.5-11.1); NEUT % 73.4 % (42.8-82.8); PLATELET COUNT 286 K/MM3 (134-434); RBC 4.04 M/mm3 (4.00-5.60); WHITE BLOOD COUNT 15.3 K/mm3 (4.0-10.0)
[2020-08-13 08:52] LABS: CALCIUM 8.7 mg/dL (8.5-10.1)
[2020-08-13 08:53] LABS: ALBUMIN 3.3 g/dl (3.4-5.0); BLOOD UREA NITROGEN 11.7 mg/dL (7-18); MAGNESIUM 2.4 mg/dL (1.8-2.4)
[2020-08-13 08:56] LABS: CREATININE 0.5 mg/dL (0.55-1.3)
[2020-08-13 08:57] LABS: BILIRUBIN,TOTAL 0.7 mg/dL (0.2-1); TOT PROT 5.7 g/dl (6.4-8.2)
[2020-08-13] MEDS: DEXAMETHASONE 4 MG TABLET (FP) PO SCH (10:09)
[2020-08-13] MEDS: DOCUSATE SODIUM 100 MG CAPSULE (FP) PO SCH ×2 (10:09→22:07)
[2020-08-13] MEDS: BUDESONIDE/FORMETEROL FUMARATE 160/4.5 mcg INHALER IH SCH ×2 (10:10→22:13)
[2020-08-13] MEDS: PANTOPRAZOLE 40 MG TABLET PO SCH (10:10)
[2020-08-13] MEDS: APIXABAN 5 MG TABLET PO SCH ×2 (10:10→22:07)
[2020-08-13] MEDS: ASCORBIC ACID 500 MG TABLET (FP) PO SCH ×2 (10:10→22:10)
[2020-08-13] MEDS: ZINC SULFATE 220 MG CAPSULE (FP) PO SCH (10:10)
[2020-08-13] MEDS: MELATONIN 1 MG TABLET PO SCH (22:07)
[2020-08-14] MEDS: guaiFENesin/CODEINE 10 ML UNIT-DOSE CUPS PO SCH ×3 (06:41→17:24)
[2020-08-14] MEDS: APIXABAN 5 MG TABLET PO SCH ×2 (10:03→21:54)
[2020-08-14] MEDS: DEXAMETHASONE 4 MG TABLET (FP) PO SCH (10:03)
[2020-08-14] MEDS: ASCORBIC ACID 500 MG TABLET (FP) PO SCH ×2 (10:03→21:54)
[2020-08-14] MEDS: DOCUSATE SODIUM 100 MG CAPSULE (FP) PO SCH ×2 (10:03→21:54)
[2020-08-14] MEDS: ZINC SULFATE 220 MG CAPSULE (FP) PO SCH (10:03)
[2020-08-14] MEDS: PANTOPRAZOLE 40 MG TABLET PO SCH (10:03)
[2020-08-14] MEDS: BUDESONIDE/FORMETEROL FUMARATE 160/4.5 mcg INHALER IH SCH ×2 (10:04→21:56)
[2020-08-14] MEDS: MELATONIN 1 MG TABLET PO SCH (21:54)
[2020-08-15] MEDS: guaiFENesin/CODEINE 10 ML UNIT-DOSE CUPS PO SCH ×4 (00:05→17:16)
[2020-08-15 07:49] LABS: BASO % 0.4 % (0-2.0); EOS % 3.5 % (0-4.5); HEMATOCRIT 33.7 % (35.4-49); HEMOGLOBIN 11.5 GM/dL (11.7-16.9); LYMPH % 10.6 % (8-40); MEAN CELL VOLUME 88.3 fl (80-96); MONO % 6.2 % (3.8-10.2); NEUT % 79.3 % (42.8-82.8); PLATELET COUNT 269 K/MM3 (134-434); RBC 3.82 M/mm3 (4.00-5.60); WHITE BLOOD COUNT 17.4 K/mm3 (4.0-10.0)
[2020-08-15 08:10] LABS: CALCIUM 8.6 mg/dL (8.5-10.1)
[2020-08-15 08:11] LABS: ALBUMIN 3.1 g/dl (3.4-5.0); BLOOD UREA NITROGEN 12.5 mg/dL (7-18); MAGNESIUM 2.4 mg/dL (1.8-2.4)
[2020-08-15 08:14] LABS: CREATININE 0.5 mg/dL (0.55-1.3)
[2020-08-15 08:15] LABS: BILIRUBIN,TOTAL 0.7 mg/dL (0.2-1); TOT PROT 5.7 g/dl (6.4-8.2)
[2020-08-15] MEDS: ZINC SULFATE 220 MG CAPSULE (FP) PO SCH (09:43)
[2020-08-15] MEDS: APIXABAN 5 MG TABLET PO SCH (09:43)
[2020-08-15] MEDS: BUDESONIDE/FORMETEROL FUMARATE 160/4.5 mcg INHALER IH SCH (09:43)
[2020-08-15] MEDS: ASCORBIC ACID 500 MG TABLET (FP) PO SCH (09:43)
[2020-08-15] MEDS: PANTOPRAZOLE 40 MG TABLET PO SCH (09:43)
[2020-08-15] MEDS: DEXAMETHASONE 4 MG TABLET (FP) PO SCH (09:43)
[2020-08-15] MEDS: DOCUSATE SODIUM 100 MG CAPSULE (FP) PO SCH (09:43)
[2020-08-15 10:19] LABS: PLATELET ESTIMATE ADEQUATE
[2020-08-15 16:10] VITALS: BP 140/69; PULSE 71; TEMP 97.9
[2020-08-16] MEDS ORDERED: DEXAMETHASONE 4 MG TABLET (FP) PO SCH (10:00)
[2020-08-19] MEDS ORDERED: DEXAMETHASONE 4 MG TABLET (FP) PO SCH (10:00)
[2020-08-22] MEDS ORDERED: DEXAMETHASONE 4 MG TABLET (FP) PO SCH (10:00)
== END 2020-08-15 17:20 | DRG 177 ==
LOC: JER 19:46 → JERBED 22:18 → J4W 07-15 09:51
PROVIDERS: ADMIT Internal Medicine; ATTEND Nurse Practitioner Acute Care
PROC: XW033E5 Introduction of Remdesivir Anti-infective into Peripheral Vein, Percutaneous Approach, New Technology Group 5 (ICD-10-PCS; principal; 2020-07-14)
DX: U07.1 COVID-19 (principal); J96.01 Acute respiratory failure with hypoxia; J12.82 Pneumonia due to coronavirus disease 2019; N39.0 Urinary tract infection, site not specified; R04.2 Hemoptysis; R50.9 Fever, unspecified; E66.9 Obesity, unspecified; Z68.32 Body mass index [BMI] 32.0-32.9, adult; D72.829 Elevated white blood cell count, unspecified
CPT/HCPCS: 36415; 71045-TC-FY; 71250-TC; 80048; 80053; 81003; 82248; 82550; 82728; 82803; 83036; 83605; 83615; 83735; 83880; 84484; 85025; 85379; 85610; 85730; 86140; 86769; 87040; 87086; 87186; 87804; 93005; 93010; 94010; 97116-GP; 97162-GP; 99285-25; C9399; C9803; J0131; J1100; J3262; U0003; U0005

== ENCOUNTER 2021-08-20 12:21 | Emergency (ER) | payer BC, OTHER ==
[2021-08-20 12:30] VITALS: BP 131/76; PULSE 86; TEMP 98.1; BMI 32.5
[2021-08-21 17:10] LABS: SARS-CoV-2 NAA Not Detected (Not Detected)
== END 2021-08-20 15:39 | disposition home or self-care (01) ==
LOC: JER 12:21
DX: J02.9 Acute pharyngitis, unspecified (principal); J06.9 Acute upper respiratory infection, unspecified
CPT/HCPCS: 71046-TC-FY; 87804; 99284-25; C9803-CS; U0003; U0005

== ENCOUNTER 2022-08-06 00:12 | Emergency (ER) | payer BC, OTHER ==
[2022-08-06 00:22] VITALS: BP 153/97; PULSE 70; RESP 18; TEMP 98.2; BMI 32.5
[2022-08-06] MEDS ORDERED: LIDOCAINE 5% TOPICAL PATCH TP ONE (00:25)
[2022-08-06] MEDS ORDERED: diazePAM 5 MG TABLET PO ONE (00:26)
[2022-08-06] MEDS ORDERED: diazePAM 5 MG TABLET ONE (00:28)
[2022-08-06] MEDS ORDERED: LIDOCAINE 5% TOPICAL PATCH ONE (00:28)
[2022-08-06 01:18] LABS: BASO % 0.8 % (0-2.0); EOS % 4.2 % (0-4.5); HEMATOCRIT 47.3 % (35.4-49); HEMOGLOBIN 16.4 GM/dL (11.7-16.9); MCH 30.6 pg (25.7-33.7); MCHC 34.7 g/dl (32.0-35.9); MEAN CELL VOLUME 88.2 fl (80-96); MEAN PLT VOLUME 7.9 fl (7.5-11.1); PLATELET COUNT 280 10^3/uL (134-434); RBC 5.36 M/mm3 (4.00-5.60); RDW 12.9 % (11.9-15.9); WHITE BLOOD COUNT 11.8 K/mm3 (4.0-10.0)
[2022-08-06 01:29] LABS: CHLORIDE 97 mmol/L (98-107); SODIUM 135 mmol/L (136-145)
[2022-08-06 01:33] LABS: ANION GAP 5 MMOL/L (8-16); BLOOD UREA NITROGEN 19.6 mg/dL (7-18); CALCIUM 8.9 mg/dL (8.5-10.1); CO2 32 mmol/L (21-32); MAGNESIUM 2.2 mg/dL (1.8-2.4)
[2022-08-06 01:34] LABS: ALBUMIN 3.6 g/dl (3.4-5.0)
[2022-08-06 01:36] LABS: CREATININE 0.8 mg/dL (0.55-1.3)
[2022-08-06 01:38] LABS: BILIRUBIN,TOTAL 0.5 mg/dL (0.2-1); TOT PROT 8.1 g/dl (6.4-8.2)
[2022-08-06 01:39] LABS: ALK PHOS 216 U/L (45-117)
[2022-08-06] MEDS ORDERED: SODIUM CHLORIDE 0.9% 500 ML INFUS.BAG IV ONE (01:46)
[2022-08-06 01:59] LABS: GLUCOSE,RANDOM 443 mg/dL (74-106); SGOT/AST 40 U/L (15-37); SGPT/ALT 62 U/L (13-61)
[2022-08-06] MEDS: SODIUM CHLORIDE 0.9% 500 ML INFUS.BAG IV ONE ×2 (02:05→03:34)
[2022-08-06] MEDS ORDERED: KETOROLAC TROMETHAMINE 60 MG/2 ML VIAL IVPB ONE (03:35)
[2022-08-06] MEDS ORDERED: ACETAMINOPHEN INJECTION 100 ML IVPB ONE (03:36)
[2022-08-06] MEDS ORDERED: KETOROLAC TROMETHAMINE 30 MG/1 ML VIAL IVPUSH ONE (03:36)
[2022-08-06] MEDS ORDERED: ACETAMINOPHEN 1000 MG/100 ML BAG IVPB ONE (03:36)
[2022-08-06] MEDS ORDERED: KETOROLAC TROMETHAMINE 30 MG/1 ML VIAL ONE (03:38)
[2022-08-06 04:05] LABS: URINE APPEARANCE CLEAR; URINE BILIRUBIN NEGATIVE (NEGATIVE); URINE COLOR YELLOW; URINE GLUCOSE (UA) 3+ (NEGATIVE); URINE KETONE NEGATIVE (NEGATIVE); URINE LEUK ESTERASE NEGATIVE (NEGATIVE); URINE NITRITE NEGATIVE (NEGATIVE); URINE PROTEIN NEGATIVE (NEGATIVE)
[2022-08-06] MEDS ORDERED: LIDOCAINE PATCH REMOVAL MC SCH (22:00)
== END 2022-08-06 04:29 | disposition home or self-care (01) ==
LOC: JER 00:12
PROC: 3E033NZ Introduction of Analgesics, Hypnotics, Sedatives into Peripheral Vein, Percutaneous Approach (ICD-10-PCS; principal; 2022-08-06)
PROC: 3E0333Z Introduction of Anti-inflammatory into Peripheral Vein, Percutaneous Approach (ICD-10-PCS; 2022-08-06)
DX: M54.50 Low back pain, unspecified (principal); R73.9 Hyperglycemia, unspecified; M62.838 Other muscle spasm
CPT/HCPCS: 36415; 74176-TC; 80053; 81003; 83735; 85025; 87086; 99285-25

== ENCOUNTER 2023-06-16 08:15 | Inpatient (IN) | payer BC, OTHER ==
[2023-06-16] MEDS ORDERED: ALBUTEROL SO4 2.5/IPRATROPIUM 0.5 INH SOL 3 ML VIAL.NEB. NEB ONE (08:58)
[2023-06-16] MEDS ORDERED: ACETAMINOPHEN 325 MG TABLET (FP) ONE ×2 (08:59→19:29)
[2023-06-16 09:19] LABS: VENOUS BASE EXCESS 0.4 mmol/L (-2-2); VENOUS O2 SATURATION 92.2 % (70-80); VENOUS PCO2 42.1 mmHg (38-52); VENOUS PH 7.398 (7.310-7.410)
[2023-06-16 09:22] LABS: BASO % 0.8 % (0-2.0); EOS % 0.1 % (0-4.5); HEMATOCRIT 40.5 % (35.4-49); HEMOGLOBIN 13.5 GM/dL (11.7-16.9); LYMPH % 4.1 % (8-40); MCH 30.5 pg (25.7-33.7); MCHC 33.3 g/dl (32.0-35.9); MEAN CELL VOLUME 91.7 fl (80-96); MEAN PLT VOLUME 7.3 fl (7.5-11.1); MONO % 10.2 % (3.8-10.2); NEUT % 84.8 % (42.8-82.8); PLATELET COUNT 343 10^3/uL (134-434); RBC 4.41 M/mm3 (4.00-5.60); RDW 12.6 % (11.9-15.9); WHITE BLOOD COUNT 21.7 K/mm3 (4.0-10.0)
[2023-06-16] MEDS: ACETAMINOPHEN 500 MG TABLET (FP) PO ONE (09:23)
[2023-06-16] MEDS: ALBUTEROL SO4 2.5/IPRATROPIUM 0.5 INH SOL 3 ML VIAL.NEB. NEB SCH (09:24)
[2023-06-16 09:44] LABS: CHLORIDE 101 mmol/L (98-107); POTASSIUM 3.5 mmol/L (3.5-5.1); SODIUM 136 mmol/L (136-145)
[2023-06-16 09:49] LABS: ALBUMIN 2.7 g/dl (3.4-5.0); ANION GAP 8 mmol/L (4-13); BLOOD UREA NITROGEN 8.4 mg/dL (7-18); CO2 26 mmol/L (21-32)
[2023-06-16 09:53] LABS: CREATININE 0.7 mg/dL (0.55-1.3); SGOT/AST 8 U/L (15-37); SGPT/ALT 16 U/L (13-61)
[2023-06-16 09:54] LABS: TOT PROT 7.3 g/dl (6.4-8.2)
[2023-06-16 09:55] LABS: ALK PHOS 139 U/L (45-117)
[2023-06-16 10:35] LABS: BILIRUBIN,TOTAL 0.6 mg/dL (0.2-1); GLUCOSE,RANDOM 408 mg/dL (74-106)
[2023-06-16 10:49] LABS: ANISOCYTOSIS 0; MACROCYTOSIS 0
[2023-06-16] MEDS ORDERED: CEFTRIAXONE 1 GM/50 ML BAG ONE (11:00)
[2023-06-16] MEDS ORDERED: AZITHROMYCIN IVPB 500 MG/250 ML BAG IVPB ONE (11:00)
[2023-06-16] MEDS: AZITHROMYCIN IVPB 500 MG in DEXTROSE 5%-WATER - 250 ML IVPB ONE (11:07)
[2023-06-16] MEDS: CEFTRIAXONE 1,000 MG in DEXTROSE 5%-WATER - 50 ML IVPB ONE (11:07)
[2023-06-16] MEDS: SODIUM CHLORIDE 0.9% 500 ML INFUS.BAG IV ONE (11:07)
[2023-06-16] MEDS: LACTATED RINGERS SOLUTION 1,000 ML IV SCH (12:34)
[2023-06-16 12:38] LABS: LACTIC ACID 2.2 mmol/L (0.4-2.0)
[2023-06-16] MEDS ORDERED: INSULIN (NOVOLOG) ASPART 100 UNITS/ML 10ML VIAL ONE (18:07)
[2023-06-16] MEDS: INSULIN ASPART SLIDING SCALE (NOVOLOG) 1 VIAL SQ SCH (18:20)
[2023-06-16] MEDS: ACETAMINOPHEN 325 MG TABLET (FP) PO PRN (19:46)
[2023-06-16] MEDS ORDERED: INSULIN (LEVEMIR) 100 UNITS/ML UNITS SQ ONE (22:44)
[2023-06-16] MEDS: INSULIN (LEVEMIR) 100 UNITS/ML UNITS SQ SCH (22:55)
[2023-06-17 08:17] LABS: POTASSIUM 3.5 mmol/L (3.5-5.1)
[2023-06-17 08:21] LABS: CALCIUM 8.2 mg/dL (8.5-10.1)
[2023-06-17 08:22] LABS: ALBUMIN 2.2 g/dl (3.4-5.0); BLOOD UREA NITROGEN 7.4 mg/dL (7-18)
[2023-06-17 08:24] LABS: CREATININE 0.4 mg/dL (0.55-1.3); PHOSPHOROUS 2.2 mg/dL (2.5-4.9)
[2023-06-17 08:26] LABS: BILIRUBIN,TOTAL 0.6 mg/dL (0.2-1); TOT PROT 6.7 g/dl (6.4-8.2)
[2023-06-17] MEDS ORDERED: ENOXAPARIN NA (PORCINE) 40 MG/0.4 ML DISP.SYRIN SQ ONE (08:31)
[2023-06-17] MEDS ORDERED: AZITHROMYCIN IVPB 500 MG/250 ML BAG IVPB ONE (08:32)
[2023-06-17] MEDS ORDERED: CEFTRIAXONE 1 GM/50 ML BAG ONE (08:32)
[2023-06-17 08:34] LABS: BASO % 0.3 % (0-2.0); EOS % 0.8 % (0-4.5); HEMATOCRIT 39.3 % (35.4-49); HEMOGLOBIN 12.8 GM/dL (11.7-16.9); LYMPH % 11.6 % (8-40); MCH 29.7 pg (25.7-33.7); MCHC 32.5 g/dl (32.0-35.9); MEAN CELL VOLUME 91.4 fl (80-96); MEAN PLT VOLUME 7.5 fl (7.5-11.1); MONO % 10.8 % (3.8-10.2); NEUT % 76.5 % (42.8-82.8); PLATELET COUNT 360 10^3/uL (134-434); RDW 12.5 % (11.9-15.9)
[2023-06-17 08:39] LABS: ACTIVATED PTT 28.4 SECONDS (25.2-36.5); INR 1.31 (0.83-1.09); PROTHROMBIN TIME (PATIENT) 15.1 SEC (9.7-13.0)
[2023-06-17] MEDS: CEFTRIAXONE 1 GM in DEXTROSE 5%-WATER - 50 ML IVPB ONE (08:43)
[2023-06-17] MEDS: ENOXAPARIN NA (PORCINE) 40 MG/0.4 ML DISP.SYRIN SQ SCH (08:44)
[2023-06-17] MEDS: AZITHROMYCIN IVPB 250 MG in DEXTROSE 5%-WATER - 250 ML IVPB SCH (09:50)
[2023-06-17 09:58] LABS: ANISOCYTOSIS 2+; MACROCYTOSIS 0
[2023-06-17] MEDS: NAPH,MB-DB/K PH,MBDB POWDER PACKET PO SCH (15:00)
[2023-06-17] MEDS: PIPERACILLIN/TAZOB 3.375 GM 3.375 GM in DEXTROSE 5%-WATER - 50 ML IVPB SCH (15:00)
[2023-06-17 15:16] VITALS: BMI 28.6
[2023-06-17] MEDS: VANCOMYCIN/WATER FOR INJ (PEG) 1,000 MG/200 ML BAG IVPB SCH (15:39)
[2023-06-17] MEDS: BUDESONIDE/FORMETEROL FUMARATE 160/4.5 mcg INHALER IH SCH (22:03)
[2023-06-18] MEDS: ACETAMINOPHEN 325 MG TABLET (FP) PO PRN (03:55)
[2023-06-18 10:09] LABS: BASO % 0.3 % (0-2.0); EOS % 1.8 % (0-4.5); HEMATOCRIT 38.9 % (35.4-49); LYMPH % 15.9 % (8-40); MCH 30.4 pg (25.7-33.7); MCHC 33.5 g/dl (32.0-35.9); MEAN CELL VOLUME 90.6 fl (80-96); MEAN PLT VOLUME 7.1 fl (7.5-11.1); MONO % 7.4 % (3.8-10.2); NEUT % 74.6 % (42.8-82.8); PLATELET COUNT 392 10^3/uL (134-434); RBC 4.29 M/mm3 (4.00-5.60); RDW 12.5 % (11.9-15.9); WHITE BLOOD COUNT 16.3 K/mm3 (4.0-10.0)
[2023-06-18] MEDS: PANTOPRAZOLE 40 MG TABLET PO SCH (10:16)
[2023-06-18 10:44] LABS: POTASSIUM 3.5 mmol/L (3.5-5.1)
[2023-06-18 10:50] LABS: ALBUMIN 2.2 g/dl (3.4-5.0); BLOOD UREA NITROGEN 9.5 mg/dL (7-18); CALCIUM 8.1 mg/dL (8.5-10.1); MAGNESIUM 2.1 mg/dL (1.8-2.4)
[2023-06-18 10:51] LABS: BILIRUBIN,TOTAL 0.5 mg/dL (0.2-1); TOT PROT 6.8 g/dl (6.4-8.2)
[2023-06-18 10:53] LABS: CREATININE 0.5 mg/dL (0.55-1.3)
[2023-06-18] MEDS: INSULIN (NOVOLOG) ASPART 100 UNITS/ML 10ML VIAL SQ SCH (12:04)
[2023-06-18] MEDS: INSULIN ASPART SLIDING SCALE (NOVOLOG) 1 VIAL SQ SCH (12:06)
[2023-06-18] MEDS: PIPERACILLIN/TAZOB 4.5 GM 4.5 GM in DEXTROSE 5%-WATER 100 ML IVPB ONE (12:10)
[2023-06-18] MEDS: methylPREDNISolone NA SUCC 40 MG/1 ML VIAL IVPUSH SCH (12:11)
[2023-06-18] MEDS: INSULIN (LEVEMIR) 100 UNITS/ML UNITS SQ SCH (12:31)
[2023-06-18] MEDS: PIPERACILLIN/TAZOB 3.375 GM 3.375 GM in DEXTROSE 5%-WATER - 50 ML IVPB SCH (18:34)
[2023-06-19 08:24] LABS: BASO % 0.2 % (0-2.0); EOS % 0.2 % (0-4.5); HEMATOCRIT 37.8 % (35.4-49); LYMPH % 13.9 % (8-40); MCH 30.7 pg (25.7-33.7); MCHC 34.3 g/dl (32.0-35.9); MEAN CELL VOLUME 89.6 fl (80-96); MEAN PLT VOLUME 7.1 fl (7.5-11.1); MONO % 5.6 % (3.8-10.2); NEUT % 80.1 % (42.8-82.8); PLATELET COUNT 433 10^3/uL (134-434); RBC 4.22 M/mm3 (4.00-5.60); RDW 12.5 % (11.9-15.9); WHITE BLOOD COUNT 17.5 K/mm3 (4.0-10.0)
[2023-06-19 08:51] LABS: CALCIUM 8.4 mg/dL (8.5-10.1)
[2023-06-19 08:52] LABS: ALBUMIN 2.2 g/dl (3.4-5.0); BLOOD UREA NITROGEN 12.8 mg/dL (7-18); MAGNESIUM 2.4 mg/dL (1.8-2.4)
[2023-06-19 08:54] LABS: CREATININE 0.5 mg/dL (0.55-1.3); PHOSPHOROUS 3.1 mg/dL (2.5-4.9)
[2023-06-19 08:56] LABS: BILIRUBIN,TOTAL 0.3 mg/dL (0.2-1); TOT PROT 6.7 g/dl (6.4-8.2)
[2023-06-19 09:01] LABS: POTASSIUM 3.5 mmol/L (3.5-5.1)
[2023-06-19] MEDS: INSULIN (LEVEMIR) 100 UNITS/ML UNITS SQ ONE (11:12)
[2023-06-19] MEDS: INSULIN (NOVOLOG) ASPART 100 UNITS/ML 10ML VIAL SQ SCH (11:17)
[2023-06-19] MEDS ORDERED: PIPERACILLIN/TAZOB 3.375 GM 3.375 GM in DEXTROSE 5%-WATER - 50 ML IVPB SCH (13:30)
[2023-06-19] MEDS: INSULIN ASPART SLIDING SCALE (NOVOLOG) 1 VIAL SQ SCH (16:40)
[2023-06-19] MEDS: CEFAZOLIN 1 GM in DEXTROSE 5%-WATER - 50 ML IVPB SCH (17:05)
[2023-06-19] MEDS: INSULIN (LEVEMIR) 100 UNITS/ML UNITS SQ SCH (21:38)
[2023-06-20 07:37] LABS: ALBUMIN 2.2 g/dl (3.4-5.0); BLOOD UREA NITROGEN 14.5 mg/dL (7-18); MAGNESIUM 1.7 mg/dL (1.8-2.4)
[2023-06-20 07:40] LABS: CREATININE 0.5 mg/dL (0.55-1.3); PHOSPHOROUS 3.4 mg/dL (2.5-4.9)
[2023-06-20 07:41] LABS: BILIRUBIN,TOTAL 0.3 mg/dL (0.2-1); TOT PROT 6.9 g/dl (6.4-8.2)
[2023-06-20 07:55] LABS: BASO % 0.2 % (0-2.0); EOS % 0.7 % (0-4.5); HEMATOCRIT 39.6 % (35.4-49); HEMOGLOBIN 13.8 GM/dL (11.7-16.9); LYMPH % 23.5 % (8-40); MCH 31.3 pg (25.7-33.7); MCHC 34.9 g/dl (32.0-35.9); MEAN CELL VOLUME 89.9 fl (80-96); MEAN PLT VOLUME 7.1 fl (7.5-11.1); MONO % 6.9 % (3.8-10.2); NEUT % 68.7 % (42.8-82.8); PLATELET COUNT 491 10^3/uL (134-434); RDW 12.4 % (11.9-15.9); WHITE BLOOD COUNT 14.9 K/mm3 (4.0-10.0)
[2023-06-20] MEDS ORDERED: INSULIN (LEVEMIR) 100 UNITS/ML UNITS SQ SCH (10:34)
[2023-06-20] MEDS ORDERED: INSULIN (NOVOLOG) ASPART 100 UNITS/ML 10ML VIAL SQ SCH (10:35)
[2023-06-20] MEDS: INSULIN (NOVOLOG) ASPART 100 UNITS/ML 10ML VIAL SQ SCH (10:57)
[2023-06-20] MEDS: INSULIN (LEVEMIR) 100 UNITS/ML UNITS SQ ONE (11:21)
[2023-06-20] MEDS: MAGNESIUM SULF 50% (8.12 MEQ/2 ML-1 GM VIAL) IVPB ONE (15:57)
[2023-06-20] MEDS: INSULIN (LEVEMIR) 100 UNITS/ML UNITS SQ SCH (21:14)
[2023-06-21] MEDS: guaiFENesin 200 MG/10 ML 10 ML UNIT-DOSE CUPS PO PRN (10:58)
[2023-06-21 12:47] LABS: BASO % 0.6 % (0-2.0); EOS % 2.9 % (0-4.5); HEMATOCRIT 42.2 % (35.4-49); HEMOGLOBIN 14.6 GM/dL (11.7-16.9); LYMPH % 34.8 % (8-40); MCH 31.2 pg (25.7-33.7); MCHC 34.7 g/dl (32.0-35.9); MEAN CELL VOLUME 90.1 fl (80-96); MONO % 8.8 % (3.8-10.2); NEUT % 52.9 % (42.8-82.8); PLATELET COUNT 535 10^3/uL (134-434); RBC 4.69 M/mm3 (4.00-5.60); RDW 12.6 % (11.9-15.9); WHITE BLOOD COUNT 9.2 K/mm3 (4.0-10.0)
[2023-06-21 13:10] LABS: POTASSIUM 4.2 mmol/L (3.5-5.1)
[2023-06-21 13:12] LABS: ALBUMIN 2.5 g/dl (3.4-5.0); BLOOD UREA NITROGEN 12.5 mg/dL (7-18); CALCIUM 8.8 mg/dL (8.5-10.1); MAGNESIUM 2.4 mg/dL (1.8-2.4)
[2023-06-21 13:15] LABS: CREATININE 0.5 mg/dL (0.55-1.3); PHOSPHOROUS 3.7 mg/dL (2.5-4.9)
[2023-06-21 13:16] LABS: BILIRUBIN,TOTAL 0.3 mg/dL (0.2-1); TOT PROT 7.4 g/dl (6.4-8.2)
[2023-06-21 19:05] LABS: PH,URINE 6.5 (5.0-8.0); URINE APPEARANCE CLEAR; URINE BILIRUBIN NEGATIVE (NEGATIVE); URINE COLOR YELLOW; URINE GLUCOSE (UA) NEGATIVE (NEGATIVE); URINE KETONE NEGATIVE (NEGATIVE); URINE LEUK ESTERASE NEGATIVE (NEGATIVE); URINE NITRITE NEGATIVE (NEGATIVE); URINE PROTEIN NEGATIVE (NEGATIVE); URINE UROBILINOGEN 0.2 mg/dL (0.2-1.0)
[2023-06-22] MEDS ORDERED: INSULIN (NOVOLOG) ASPART 100 UNITS/ML 10ML VIAL SQ SCH (08:01)
[2023-06-22] MEDS ORDERED: INSULIN (LEVEMIR) 100 UNITS/ML UNITS SQ SCH (08:01)
[2023-06-22 08:56] LABS: POTASSIUM 4.4 mmol/L (3.5-5.1)
[2023-06-22 09:02] LABS: CALCIUM 8.6 mg/dL (8.5-10.1)
[2023-06-22 09:03] LABS: ALBUMIN 2.6 g/dl (3.4-5.0); MAGNESIUM 2.4 mg/dL (1.8-2.4)
[2023-06-22 09:04] LABS: PHOSPHOROUS 2.8 mg/dL (2.5-4.9)
[2023-06-22 09:05] LABS: BILIRUBIN,TOTAL 0.4 mg/dL (0.2-1); CREATININE 0.5 mg/dL (0.55-1.3)
[2023-06-22 09:06] LABS: BLOOD UREA NITROGEN 9.9 mg/dL (7-18); TOT PROT 7.3 g/dl (6.4-8.2)
[2023-06-22 09:19] LABS: BASO % 0.5 % (0-2.0); EOS % 2.9 % (0-4.5); HEMATOCRIT 41.8 % (35.4-49); HEMOGLOBIN 14.2 GM/dL (11.7-16.9); LYMPH % 27.6 % (8-40); MEAN CELL VOLUME 91.3 fl (80-96); MEAN PLT VOLUME 7.1 fl (7.5-11.1); MONO % 6.3 % (3.8-10.2); NEUT % 62.7 % (42.8-82.8); PLATELET COUNT 536 10^3/uL (134-434); RBC 4.58 M/mm3 (4.00-5.60); RDW 12.4 % (11.9-15.9); WHITE BLOOD COUNT 10.7 K/mm3 (4.0-10.0)
[2023-06-22] MEDS: CEFAZOLIN 1 GM in SODIUM CHLORIDE 50 ML IVPB SCH (09:46)
[2023-06-22] MEDS: EMPAGLIFLOZIN (JARDIANCE) 25 MG TABLET PO SCH (09:46)
[2023-06-22] MEDS: INSULIN (NOVOLOG) ASPART 100 UNITS/ML 10ML VIAL SQ SCH (12:05)
[2023-06-22] MEDS ORDERED: INSULIN ASPART SLIDING SCALE (NOVOLOG) 1 VIAL SQ ONE (21:07)
[2023-06-22] MEDS: INSULIN (LEVEMIR) 100 UNITS/ML UNITS SQ SCH (21:11)
[2023-06-23 08:37] LABS: BASO % 0.7 % (0-2.0); EOS % 2.9 % (0-4.5); HEMATOCRIT 42.5 % (35.4-49); HEMOGLOBIN 14.8 GM/dL (11.7-16.9); LYMPH % 26.4 % (8-40); MCH 31.3 pg (25.7-33.7); MCHC 34.9 g/dl (32.0-35.9); MEAN CELL VOLUME 89.8 fl (80-96); MEAN PLT VOLUME 6.9 fl (7.5-11.1); MONO % 6.6 % (3.8-10.2); NEUT % 63.4 % (42.8-82.8); PLATELET COUNT 629 10^3/uL (134-434); RBC 4.73 M/mm3 (4.00-5.60); RDW 12.8 % (11.9-15.9); WHITE BLOOD COUNT 10.1 K/mm3 (4.0-10.0)
[2023-06-23 09:00] LABS: POTASSIUM 4.2 mmol/L (3.5-5.1)
[2023-06-23 09:01] LABS: CALCIUM 8.4 mg/dL (8.5-10.1)
[2023-06-23 09:02] LABS: BLOOD UREA NITROGEN 15.6 mg/dL (7-18)
[2023-06-23 09:05] LABS: CREATININE 0.5 mg/dL (0.55-1.3)
[2023-06-24] MEDS ORDERED: INSULIN ASPART SLIDING SCALE (NOVOLOG) 1 VIAL SQ ONE (06:28)
[2023-06-24 08:23] LABS: BASO % 0.6 % (0-2.0); EOS % 2.7 % (0-4.5); HEMOGLOBIN 14.3 GM/dL (11.7-16.9); LYMPH % 27.3 % (8-40); MEAN CELL VOLUME 90.9 fl (80-96); MEAN PLT VOLUME 6.9 fl (7.5-11.1); MONO % 5.3 % (3.8-10.2); NEUT % 64.1 % (42.8-82.8); PLATELET COUNT 599 10^3/uL (134-434); RBC 4.62 M/mm3 (4.00-5.60); WHITE BLOOD COUNT 9.8 K/mm3 (4.0-10.0)
[2023-06-24 08:40] LABS: POTASSIUM 4.1 mmol/L (3.5-5.1)
[2023-06-24 08:46] LABS: BLOOD UREA NITROGEN 17.4 mg/dL (7-18); CALCIUM 8.6 mg/dL (8.5-10.1); MAGNESIUM 2.5 mg/dL (1.8-2.4)
[2023-06-24 08:47] LABS: ALBUMIN 2.7 g/dl (3.4-5.0)
[2023-06-24 08:49] LABS: CREATININE 0.5 mg/dL (0.55-1.3); PHOSPHOROUS 3.4 mg/dL (2.5-4.9)
[2023-06-24 08:51] LABS: BILIRUBIN,TOTAL 0.3 mg/dL (0.2-1); TOT PROT 7.3 g/dl (6.4-8.2)
[2023-06-26 13:00] LABS: PH,URINE 5.5 (5.0-8.0); URINE APPEARANCE CLEAR; URINE BILIRUBIN NEGATIVE (NEGATIVE); URINE COLOR YELLOW; URINE GLUCOSE (UA) 3+ (NEGATIVE); URINE KETONE TRACE (NEGATIVE); URINE LEUK ESTERASE NEGATIVE (NEGATIVE); URINE NITRITE NEGATIVE (NEGATIVE); URINE PROTEIN NEGATIVE (NEGATIVE); URINE UROBILINOGEN 0.2 mg/dL (0.2-1.0)
[2023-06-26] MEDS ORDERED: VANCOMYCIN HCL 1,500 MG in DEXTROSE 5%-WATER - 250 ML IVPB SCH (14:15)
[2023-06-26] MEDS ORDERED: DAPTOMYCIN 700 MG in SODIUM CHLORIDE 50 ML IVPB ONE (15:00)
[2023-06-26] MEDS: VANCOMYCIN PREMIX 1.5 GM 1,500 MG/300 ML BAG IVPB SCH (15:42)
[2023-06-27 10:38] LABS: POTASSIUM 4.4 mmol/L (3.5-5.1)
[2023-06-27 10:42] LABS: ALBUMIN 3.1 g/dl (3.4-5.0); BLOOD UREA NITROGEN 13.9 mg/dL (7-18)
[2023-06-27 10:43] LABS: CALCIUM 8.7 mg/dL (8.5-10.1)
[2023-06-27 10:45] LABS: CREATININE 0.5 mg/dL (0.55-1.3)
[2023-06-27 10:46] LABS: BILIRUBIN,TOTAL 0.4 mg/dL (0.2-1)
[2023-06-27 10:47] LABS: TOT PROT 7.6 g/dl (6.4-8.2)
[2023-06-27] MEDS: CEFAZOLIN 2 GM in DEXTROSE 5%-WATER - 50 ML IVPB SCH (17:48)
[2023-06-28] MEDS: CEFAZOLIN SODIUM 2 GM in DEXTROSE 5%-WATER 100 ML IVPB SCH (18:15)
[2023-06-29] MEDS ORDERED: INSULIN ASPART SLIDING SCALE (NOVOLOG) 1 VIAL SQ ONE (17:23)
[2023-06-30] MEDS: CEFAZOLIN SODIUM 2 GM in DEXTROSE 5%-WATER 100 ML IVPB SCH (03:12)
[2023-07-01 10:57] VITALS: BP 110/75; PULSE 63; RESP 18; TEMP 97.6
== END 2023-07-01 19:50 | disposition home or self-care (01) | DRG 871 ==
LOC: JER 08:15 → JERBED 10:57 → OBSVTOIN 06-17 09:06 → INTOOBSV 06-17 09:06 → J6S 06-17 13:16
PROVIDERS: ADMIT Internal Medicine; ATTEND Internal Medicine
PROC: 02HV33Z Insertion of Infusion Device into Superior Vena Cava, Percutaneous Approach (ICD-10-PCS; principal; 2023-06-24)
PROC: B548ZZA Ultrasonography of Superior Vena Cava, Guidance (ICD-10-PCS; 2023-06-24)
DX: A41.01 Sepsis due to Methicillin susceptible Staphylococcus aureus (principal); J18.9 Pneumonia, unspecified organism; J96.01 Acute respiratory failure with hypoxia; I10 Essential (primary) hypertension; E11.65 Type 2 diabetes mellitus with hyperglycemia; Z86.16 Personal history of COVID-19; D75.839 Thrombocytosis, unspecified; E86.0 Dehydration
CPT/HCPCS: 0241U-QW; 36415; 36569; 71045-TC-FY; 71046-TC-FY; 71250-TC; 71260-TC; 80048; 80053; 80061; 81003; 82803; 82962; 83036; 83605; 83735; 83880; 84100; 84484; 85025; 85610; 85730; 86140; 87040; 87070; 87186; 87205; 87899; 93005; 93010; 93306-TC; 99285-25; G0378; G0480

== ENCOUNTER 2024-11-22 21:40 | Emergency (ER) | payer BC, OTHER ==
[2024-11-22 21:46] VITALS: BP 151/81; PULSE 64; RESP 16; TEMP 98.5; BMI 27.7
[2024-11-22 22:31] LABS: ABSOLUTE IMMATURE GRANULOCYTES 0.02 x10^3/uL (0.0-0.031); BASOPHILS # 0.11 x10^3/uL (0.01-0.08); EOSINOPHIL % 5.6 % (0.8-7.0); EOSINOPHILS # 0.61 x10^3/uL (0.04-0.54); MCHC 32.2 g/dl (32.3-36.5); MEAN CELL VOLUME 91.8 fl (79.0-92.2); MEAN PLT VOLUME 8.9 fl (9.4-12.4); MONOCYTE # 1.01 x10^3/uL (0.30-0.82); MONOCYTE % 9.2 % (5.3-12.2); RDW 13.0 % (12.2-16.1)
[2024-11-22 23:01] LABS: CO2 30.0 mmol/L (21-32); GLUCOSE,RANDOM 176.0 mg/dL (74-106)
[2024-11-22 23:04] LABS: CREATININE 0.6 mg/dL (0.55-1.3); SGOT/AST 19.0 U/L (15-37); SGPT/ALT 30.0 U/L (13-61)
[2024-11-22 23:05] LABS: TOT PROT 7.2 g/dl (6.4-8.2)
[2024-11-22 23:07] LABS: ALK PHOS 117.0 U/L (45-117)
[2024-11-22 23:56] LABS: HIV INTERPRETATION NEGATIVE (NEGATIVE)
[2024-11-23 20:06] LABS: HCV DIAGNOSTIC IN-HOUSE W/RFLX NON-REACTIVE (NONREACTIVE)
== END 2024-11-23 00:26 | disposition home or self-care (01) ==
LOC: JER 21:40
DX: R07.81 Pleurodynia (principal); M79.18 Myalgia, other site; R06.01 Orthopnea; R94.31 Abnormal electrocardiogram [ECG] [EKG]
CPT/HCPCS: 36415; 71046-TC-FY; 80053; 83735; 83880; 84484; 85025; 86803; 87389; 93005; 93010; 99285-25